=== PATIENT | male | born 1970 | race Caucasian/White ===

== ENCOUNTER → 2020-04-14 07:53 | Outpatient (BNVA) | payer BC, SELFPAY | PROVIDERS: PCP Internal Medicine; Visit Provider Orthopaedic Surgery ==

== ENCOUNTER 2022-10-28 09:47 | Outpatient (AMB) | payer BC, SELFPAY ==
[2022-10-28 09:57] VITALS: BP 120/68; PULSE 102; O2SAT 96; BMI 28.7
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
== END 2022-10-28 11:14 | disposition home or self-care (01) ==
PROVIDERS: PCP Family Medicine; Visit Provider Family Medicine
DX: I10 Essential (primary) hypertension (principal); F41.9 Anxiety disorder, unspecified; F17.210 Nicotine dependence, cigarettes, uncomplicated; Z86.010 Personal history of colon polyps; B07.9 Viral wart, unspecified; G47.9 Sleep disorder, unspecified
CPT/HCPCS: 99203

== ENCOUNTER 2023-01-04 14:33 | Outpatient (AMB) | payer BC, SELFPAY ==
[2023-01-04 14:39] VITALS: BP 126/74; PULSE 112; O2SAT 96; BMI 29.5
--- NOTE | 2023-01-04 14:39 | A.OFFPC_ITS ---
Vital Signs 01/04/23 14:39 Height 5 ft 8 in Weight 194 lb BMI 29.5 BP 126/74 Blood Pressure Location Rt brachial Position Sitting Pulse 112 H Pulse Source Pulse Oximeter Pulse Oximetry (%) 96 Oxygen Delivery Method Room Air Intake Visit Reasons: difficulty sleeping Intake Note: Patient is here with lack of sleep. fatigued since last visit. Allergies No Known Allergies Allergy (Verified 01/04/23 14:43) Tobacco use date assessed: 10/28/22 HPI difficulty sleeping HPI Details 52 y/o male presents today to f/u anxiet y and difficulty sleeping. Trialing buspirone. He stated he had used trazodone in the past. He reports ongoing difficulty sleeping. He does report he has woken up on more than one occassion gasping for air. 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 Cognitive needs: No Hearing needs: No Vision needs: Yes (wears glasses) Review of Systems Const Denies chills, Denies fatigue, Denies fever(s), Denies headache(s) and Denies weakness ENT Denies dizziness and Denies headache(s) Card Denies dyspnea Resp Denies cough, Denies dyspnea, Denies wheezing and Denies other (shortness of breath) Musc Denies numbness and Denies tingling Neuro Denies dizziness, Denies headache(s), Denies numbness, Denies tingling and Denies weakness Psych Reports anxiety and Denies depression Endo Denies fatigue Aller/Immun Denies wheezing Physical exam (Primary Care) Vital Signs: Last Vital Signs Pulse 112 H 01/04/23 14:39 BP 126/74 01/04/23 14:39 Pulse Ox 96 11/01/23 14:39 Oxygen Delivery Method Room Air 01/04/23 14:39 BMI result Body Mass Index 29.5 Tobacco/Smoking Status: Tobacco use Status Tobacco use date assessed 10/28/22 01/04/23 14:47 Patient Tobacco Use Status Current everyday Tobacco 01/04/23 14:47 e-Cigarette/Vaping Use Never Used 01/04/23 14:47 Const General: well developed; No acute distress Nutritional Appearance: well nourished Orientation/consciousness: patient oriented x3 HENMT Head: Yes normocephalic and Yes atraumatic Eyes General: appearance normal, both eyes and all related structures Pupils: Equal, round and reactive pupils present EOM: EOMs intact bilaterally Resp Effort & Inspection: normal respiratory effort Auscultation: clear to auscultation bilaterally Cardio Rate: regular rate Rhythm: regular rhythm Heart sounds: S1 normal heart sound present, S2 normal heart sound present, no gallops, no murmurs and no rubs Neuro General: patient oriented x3 and gait normal Cranial nerves: Yes Equal, round and reactive pupils present Psych Affect: normal affect Assessment and Plan Assessment & Plan (1) Anxiety: Code(s): F41.9 - Anxiety disorder, unspecified Plan: Ongoing?anxiety We?discussed?1st?and?2nd?line?medications. Will?trial?citalopram. (2) Difficulty sleeping: Code(s): G47.9 - Sleep disorder, unspecified Plan: Ongoing?difficulty?sleeping?which?may?be?multifactorial?including?anxi ety?and?also?probable?sleep?apnea. We?discussed?that?we?can?not?use?any?sedating?medications?currently?as?he?may?toro ve?sleep?apnea.??Will?rule?this?out Sleep?study?or (3) Sleep apnea: Code(s): G47.30 - Sleep apnea, unspecified Plan: As?above,?sleep?study?is?ordered. (4) Boil: Code(s): L02.92 - Furuncle, unspecified Plan: Will?give?him?a?script?for?Bactrim Patient?will?return?on?Monday?for?lancing Orders: Referrals Sleep Medicine Referral G47.30 - Sleep apnea, unspecified Medications: New citalopram (Celexa) 20 mg PO DAILY 30 days 30 tabs 1RF sulfamethoxazole-trimethoprim 800-160 mg (Bactrim DS) 1 tab PO Q12H 10 days 20 tabs 0RF Coding Level of Care Code Est Pt Level 4 (52292) Diagnoses Anxiety F41.9 Difficulty sleeping G47.9 Sleep apnea G47.30 Boil L02.92
== END 2023-01-04 16:02 | disposition home or self-care (01) ==
PROVIDERS: PCP Family Medicine; Visit Provider Family Medicine
DX: F41.9 Anxiety disorder, unspecified (principal); G47.9 Sleep disorder, unspecified; G47.30 Sleep apnea, unspecified; L02.92 Furuncle, unspecified
CPT/HCPCS: 99214

== ENCOUNTER 2023-01-06 15:34 | Outpatient (AMB) | payer BC, SELFPAY ==
--- NOTE | 2023-01-06 15:40 | MHC.PC.OV ---
Vital Signs 01/06/23 15:45 Height 5 ft 8 in Weight 186 lb BMI 28.3 BP 108/82 Blood Pressure Location Rt brachial Position Sitting Respiration 13 Pulse 113 H Pulse Source Pulse Oximeter Pulse Oximetry (%) 99 Oxygen Delivery Method Room Air Intake Visit Reasons: Shoaib boil Intake Note: Patient reports he is here for a procedure today. 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 Had started him on Bactrim and advised warm soaks. Likely need to be lanced. Fluctuance has resolved. Firmness to the wound. Central induration HPI Comments History of Present Illness Details Documentation assistance for Emeka Li MD, was provided by Travis Everett,?Obiee [employer] Solution Architect on 01/06/2023 3:52 PM EST. I, Dr. Li, have read, observed, and verified documentation.? 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 Cognitive needs: No Hearing needs: No Vision needs: Yes (wears glasses) Review of Systems Const Denies chills, Denies fatigue, Denies fever(s), Denies headache(s) and Denies weakness ENT Denies dizziness and Denies headache(s) Card Denies dyspnea Resp Denies cough, Denies dyspnea, Denies wheezing and Denies other (shortness of breath) Musc Denies numbness and Denies tingling Neuro Denies dizziness, Denies headache(s), Denies numbness, Denies tingling and Denies weakness Psych Denies anxiety and Denies depression Endo Denies fatigue Aller/Immun Denies wheezing Physical exam (Primary Care) Vital Signs: Last Vital Signs Pulse 113 H 01/06/23 15:45 Resp 13 01/06/23 15:45 BP 108/82 01/06/23 15:45 Pulse Ox 99 01/06/23 15:45 Oxygen Delivery Method Room Air 01/06/23 15:45 BMI result Body Mass Index 28.3 Tobacco/Smoking Status: Tobacco use Status Tobacco use date assessed 10/28/22 01/06/23 15:41 Patient Tobacco Use Status Current everyday Tobacco 01/06/23 15:41 e-Cigarette/Vaping Use Never Used 01/06/23 15:41 Assessment and Plan Assessment & Plan (1) Boil: Code(s): L02.92 - Furuncle, unspecified (2) Abscess: Code(s): L02.91 - Cutaneous abscess, unspecified Plan: Significantly?improved?since?last?visit.??He?has?been?taking?Bactrim?DS Minimal?or?no?fluctuance?and?erythema?has?changed?from?a?bright?red?to?a?dark/dusky?red?and?feels?more?like?granuloma Still?had?central lesion?and?I?did?attempt?to?Shoaib?this. Patient?was?prepped?and?draped?in?the?usual?sterile?fashion Had?used?povidone?iodine?to?sterilize?the?surrounding?area Used?a?11.?Scalpel?and?single?stab?incision Expressed?only?serosanguineous?fluid A?wound?culture?was?obtained The?wound?was?covered?with?bacitracin?and?a?self?adhering?bandage Advised?him?that?he?can?take?off?the?bandage?tomorrow?and?should?continue?warm?soaks?and?continue?Bactrim?DS?twice?a?day?for?the?remainder?of?10?days Overall,?wound?seems?significantly?improved?and?I?think?he?is?responding?well?to?the?antibiotic. Will?follow-up?on?wound?culture?which?is?likely?to?be?negative He?will?call?or?return?to?office?if?healing?[place]?or?wound?worsened Coding Level of Care Code Est Pt Level 3 (45610) Diagnoses Boil L02.92 Abscess L02.91
[2023-01-06 15:45] VITALS: BP 108/82; PULSE 113; RESP 13; O2SAT 99; BMI 28.3
== END 2023-01-06 16:08 | disposition home or self-care (01) ==
PROVIDERS: PCP Family Medicine; Visit Provider Family Medicine
DX: L02.92 Furuncle, unspecified (principal); L02.91 Cutaneous abscess, unspecified
CPT/HCPCS: 99213

== ENCOUNTER 2023-01-06 18:29 | Outpatient (REF) | payer BC, SELFPAY | END 2023-01-06 18:30 | disposition home or self-care (01) | LOC: HO.LNP 18:29 | PROVIDERS: Visit Provider Family Medicine | DX: L02.91 Cutaneous abscess, unspecified (principal); L02.92 Furuncle, unspecified | CPT/HCPCS: 87070; 87205 ==

== ENCOUNTER 2023-02-03 09:40 | Outpatient (REF) | payer BC, SELFPAY ==
[2023-02-03 11:19] LABS: Appearance Urine Clear; Color Urine Yellow; Glucose Urine UA Negative (Negative); Leukocyte Esterase Urine Negative (Negative); Nitrite Urine Negative (Negative); Specific Gravity - Urine 1.015 (1.005-1.025); UMIC TRIGGER UA YES; Urine Blood Trace (Negative); Urine Ketones Negative (Negative); Urine Protein 30 (1+) mg/dL (Neg-Trace)
[2023-02-03 11:50] LABS: Bacteria Urine None Seen (None Seen); Hyaline Casts Urine 0-2 /LPF (0-2); RBC Urine 0-2 /HPF (0-2); Squamous Epithelial Cell Urine 0-2 /HPF (0-2); WBC Urine 0-5 /HPF (0-5)
[2023-02-03 11:57] LABS: Alanine Aminotransferase 23 U/L (0-40); Alkaline Phosphatase 77 U/L (39-117); Anion Gap 15 (12-20); Aspartate Amino Transferase 20 U/L (5-37); Bilirubin Total 0.3 mg/dL (0.0-1.0); Blood Urea Nitrogen 27 mg/dL (9-16); Calcium 9.3 mg/dL (8.4-10.2); Carbon Dioxide 28 mmol/L (22-29); Chloride 93 mmol/L (96-108); Cholesterol 176 mg/dL (<200); Estimated Glomerular Filt Rate 53; Glucose Fasting 85 mg/dL (60-99); HDL Cholesterol 21 mg/dL (>40); LDL Cholesterol Calculated 102 mg/dL (<100); Potassium 3.4 mmol/L (3.3-5.1); Sodium 133 mmol/L (135-145); Total Protein 7.1 g/dL (6.5-8.0); Triglycerides 268 mg/dL (<150)
[2023-02-03 12:20] LABS: TSH reflex Free T4 0.68 uIU/mL (0.32-4.0)
[2023-02-03 12:21] LABS: Prostate Specific Antigen Scr 1.02 ng/mL (<0.05-4.0)
[2023-02-03 12:28] LABS: Creatinine Urine 117.19 mg/dL; Microalbum/Creatinine Ratio Ur 26.4 ug/mg cr (<30)
== END 2023-02-03 09:41 | disposition home or self-care (01) ==
LOC: HO.WFDLDS 09:40
PROVIDERS: Visit Provider Family Medicine
DX: Z00.00 Encounter for general adult medical examination without abnormal findings (principal); Z12.5 Encounter for screening for malignant neoplasm of prostate; I10 Essential (primary) hypertension
CPT/HCPCS: 36415; 80053; 80061; 81001; 82043; 82570; 84153; 84443

== ENCOUNTER 2023-02-03 10:55 | Outpatient (AMB) | payer BC, SELFPAY ==
[2023-02-03 11:01] VITALS: BP 122/78; PULSE 91; O2SAT 96; BMI 29.4
--- NOTE | 2023-02-03 11:01 | MHC.PC.OV ---
Vital Signs 02/03/23 11:01 Height 5 ft 8 in Weight 193 lb 2 oz BMI 29.4 BP 122/78 Blood Pressure Location Lt brachial Position Sitting Pulse 91 Pulse Source Pulse Oximeter Pulse Oximetry (%) 96 Oxygen Delivery Method Room Air Intake Visit Reasons: CPE with f/u labs and health maintenance Intake Note: Patient is here today for a physical, did not get his labs done until this morning. Allergies No Known Allergies Allergy (Verified 02/03/23 11:05) Medication List - Last Reconciled 02/03/23 by Emeka Li MD buspirone 5 mg PO DAILY 30 days chlorthalidone 50 mg PO DAILY cholecalciferol (vitamin D3) 50 mcg PO DAILY citalopram (Celexa) 20 mg PO DAILY 30 days diclofenac sodium 75 mg PO BID ibuprofen 800 mg PO TID 30 days lisinopril 20 mg PO DAILY montelukast 10 mg PO DAILY pyridoxine (vitamin B6) 50 mg PO DAILY Tobacco use date assessed: 02/03/23 HPI CPE with f/u labs and health maintenance HPI Details 52 y/o male presents for a CPE with f/u labs and health maintenance. No recent labs to review. Labs still pending. Blood pressure today 122/78. He is on chlorthalidone 50mg, lisinopril 20mg. Pt reports a tremor on his hands. He denies any headache, dizziness, imbalance associated with this. He does note fatigue. He has not noticed if tremor has developed starting any new medications. Pt reports a cough in the morning when he wakes up. He continues smoking a pack per day. 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 Cognitive needs: No Hearing needs: No Vision needs: Yes (wears glasses) Review of Systems Const Denies chills, Reports difficulty sleeping, Reports fatigue, Denies fever(s), Denies headache(s) and Denies weakness Eyes Denies change in vision ENT Denies dizziness, Denies headache(s), Denies hearing loss, Denies nasal congestion, Denies sinus pain, Denies sinus pressure and Denies sore throat Card Denies chest pain, Denies lightheadedness, Denies dyspnea and Denies other (palpitations) Resp Denies cough, Denies dyspnea and Denies wheezing GI Denies abdominal pain, Denies melena, Denies hematochezia, Denies change in bowel habits, Denies dyspepsia and Denies nausea Denies hematuria and Denies dysuria Musc Denies abnormal gait, Denies myalgias, Denies arthralgias, Denies numbness and Denies tingling Skin/Breast Denies rash, Denies unusual bruising and Denies wounds Neuro Denies abnormal gait, Denies dizziness, Denies headache(s), Denies memory loss, Denies numbness, Denies Sensory deficit (Neuro), Denies tingling and Denies weakness Psych Denies anxiety, Denies depression and Denies memory loss Endo Denies cold intolerance, Reports fatigue, Denies heat intolerance, Denies polydipsia and Denies polyuria Shashi/Lymph Denies easy bleeding and Denies easy bruising Aller/Immun Denies wheezing Physical exam (Primary Care) Vital Signs: Last Vital Signs Pulse 91 02/03/23 11:01 BP 122/78 02/03/23 11:01 Pulse Ox 96 02/03/23 11:01 Oxygen Delivery Method Room Air 02/03/23 11:01 BMI result Body Mass Index 29.4 Tobacco/Smoking Status: Tobacco use Status Tobacco use date assessed 02/03/23 02/03/23 11:08 Patient Tobacco Use Status Current everyday Tobacco 02/03/23 11:04 e-Cigarette/Vaping Use Never Used 02/03/23 11:04 Const General: no acute distress, well developed, alert and awake Nutritional Appearance: well nourished Orientation/consciousness: patient oriented x3 HENMT Head: Yes normocephalic and Yes atraumatic Ears: hearing grossly normal bilaterally and TM's normal bilaterally General nose exam: Normal external nose present and Normal nares present Mouth: Normal oral and palatal mucosa present and moist mucous membranes Teeth and gingiva: dentition normal Throat: Yes posterior oropharynx normal Eyes General: appearance normal, both eyes and all related structures Pupils: Equal, round and reactive pupils present and Pupil accommodation reflex normal EOM: EOMs intact bilaterally Neck Neck: Yes normal visual inspection, Yes no lymphadenopathy and Yes trachea midline Thyroid: Thyroid normal Carotids: no bruits Lymphatic: no lymphadenopathy noted Chest Chest palpation & inspection: normal inspection of the chest Resp Effort & Inspection: normal respiratory effort Auscultation: clear to auscultation bilaterally Cardio Rate: regular rate Rhythm: regular rhythm Heart sounds: S1 normal heart sound present, S2 normal heart sound present, no gallops, no murmurs and no rubs Bruits: no abdominal aortic bruits and no carotid bruits GI Palpation (GI): No Abdominal aortic bruit present, Soft to palpation, nontender, No hepatosplenomegaly present and No Rebound tenderness present Auscultation: normal bowel sounds General: Yes no CVA tenderness Back/Spine/Pelvis Back: no CVA tenderness Cervical Spine: cervical ROM normal and No Cervical spine tenderness Thoracic/Lumbar Spine: thoraco-lumbar ROM normal, No pain with thoraco-lumbar ROM, No thoracic spinal tenderness and No lumbar spinal tenderness Skin Lesions: no lesions Rashes: no rashes Trauma: no lacerations or abrasions Wounds: no wounds Nails: normal Neuro General: patient oriented x3 Cranial nerves: Yes Equal, round and reactive pupils present Cognition (Neuro): normal cognition Gait exam (Neuro): Normal gait present Motor exam (neuro): 5/5 motor strength present throughout Sensory Exam: No Sensory deficit (Neuro) Deep tendon reflexes (DTR's): Right patellar reflex intensity grade: 2+ and Left patellar reflex intensity grade: 2+ Extrem General: Yes normal to inspection and No edema Psych Appearance: grossly normal Affect: normal affect Attitude: cooperative Thought process: Normal thought process present Assessment and Plan Assessment & Plan (1) Adult general medical exam: Code(s): Z00.00 - Encounter for general adult medical examination without abnormal findings Plan: 52-year-old?male?presents?for?complete?physical?exam Encouraged?healthy?diet?with?active?lifestyle?and?plenty?of?exercise (2) Hypertension: Code(s): I10 - Essential (primary) hypertension Plan: Blood?pressure?is?controlled.??Goal?is?less?than?140/90 (3) Tremor: Code(s): R25.1 - Tremor, unspecified Plan: Very?fine?tremor?bilaterally?though?patient?notes?this?becomes?more?course?at?times He?says?this?precedes?starting?citalopram?but?I?will?have?him?discontinue?this?for?now. Encouraged?cessation?of?caffeine or?any?other?stimulants. Encouraged?decreasing?in?cessation?of?nicotine?as?able Encouraged?improved?sleep?as?able?and?he?will?be?seeing?sleep?Medicine?soon. Asked?him?to?keep?a?symptom?diary If?not?improving?with?the?above?or?if?worsening, will?refer?to?Neurology (4) Screening for colon cancer: Code(s): Z12.11 - Encounter for screening for malignant neoplasm of colon Plan: Patient?had?a?colonoscopy?with?Dr. Garcia most?recently?and?was?told?to?follow-up?in?10?years. He?is?up-to-date.??I?am?requesting?the?report?so?I?know?when?he?is?due?back (5) Cough: Code(s): R05.9 - Cough, unspecified Plan: Has?a?morning?cough Advised?smoking?cessation (6) Screening for prostate cancer: Code(s): Z12.5 - Encounter for screening for malignant neoplasm of prostate Plan: Patient?had?labs?drawn?today?including?PSA?which?is?not?available?yet. We?can?follow-up?at?his?telemedicine?appointment?in?a?few?weeks (7) Smoker: Code(s): F17.200 - Nicotine dependence, unspecified, uncomplicated Plan: As?above,?advised?smoking?cessation (8) Anxiety: Code(s): F41.9 - Anxiety disorder, unspecified Plan: Will?follow He?has?been?on?Celexa?but?we?are?discontinuing?this?for the?time?being (9) Sleep apnea: Code(s): G47.30 - Sleep apnea, unspecified Plan: Has?appointment?coming?up?with?sleep?medicine. Coding Level of Care Code Est Pt Level 3 (14038) Est Pt Prev Care 40-64y(64931) Diagnoses Adult general medical exam Z00.00 Hypertension I10 Tremor R25.1 Screening for colon cancer Z12.11 Cough R05.9 Screening for prostate cancer Z12.5 Smoker F17.200 Anxiety F41.9 Sleep apnea G47.30
== END 2023-02-03 12:26 | disposition home or self-care (01) ==
PROVIDERS: PCP Family Medicine; Visit Provider Family Medicine
DX: Z00.00 Encounter for general adult medical examination without abnormal findings (principal); I10 Essential (primary) hypertension; R25.1 Tremor, unspecified; R05.9 Cough, unspecified; F17.210 Nicotine dependence, cigarettes, uncomplicated; F41.9 Anxiety disorder, unspecified; G47.30 Sleep apnea, unspecified
CPT/HCPCS: 99212; 99396

== ENCOUNTER 2023-02-14 14:52 | Outpatient (AMB) | payer BC, SELFPAY ==
--- NOTE | 2023-02-14 14:47 | MHC.PC.OV ---
Intake Visit Reasons: f/u CPE-labs Intake Note: Patient is following up on labs today. Allergies No Known Allergies Allergy (Verified 02/14/23 14:50) Tobacco use date assessed: 02/14/23 HPI f/u CPE-labs HPI Details 52 y/o male presents to f/u CPE-labs via telemedicine. Labs were drawn 02/03/23. Reviewed labs with pt. Mildly low sodium at 133 mmol/L. Triglycerides 268. TC 176. LDL 102. HDL low at 21. He reports he plans to have a more active lifestyle. Pt had complaints of a tremor last office visit. He reports he had reduced his coffee intake from 6 cups per day to 2-3. He reports ongoing tremors. 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 Cognitive needs: No Hearing needs: No Vision needs: Yes (wears glasses) Review of Systems Const Denies chills, Denies fatigue, Denies fever(s), Denies headache(s) and Denies weakness ENT Denies dizziness and Denies headache(s) Card Denies dyspnea Resp Denies cough, Denies dyspnea, Denies wheezing and Denies other (shortness of breath) Musc Denies numbness and Denies tingling Neuro Denies dizziness, Denies headache(s), Denies numbness, Denies tingling and Denies weakness Psych Denies anxiety and Denies depression Endo Denies fatigue Aller/Immun Denies wheezing Physical exam (Primary Care) Tobacco/Smoking Status: Tobacco use Status Tobacco use date assessed 02/14/23 02/14/23 14:50 Patient Tobacco Use Status Current everyday Tobacco 02/14/23 14:50 e-Cigarette/Vaping Use Never Used 02/14/23 14:50 Telehealth Telehealth Location of provider rendering services: practice address Location of patient: address on file Patient Identification confirmed using: Name, : Yes Telehealth method: voice only Patient verbally consented to treatment: Yes Patient verbally consented to billing insurance company: Yes Patient informed of any privacy concerns related to visit: Yes Minutes spent on Phone/Video with Pt.: 8 Assessment and Plan Assessment & Plan (1) Tremor: Code(s): R25.1 - Tremor, unspecified Plan: Still?has?ongoing?tremor?after?decreasing?smoking?and?caffeine. He?has?not?discontinued?citalopram and?this?medication?could?cause?dyskinesias?though?this?is?unlikely?and?his?symptoms?preceded?taking?the?medication. Also?has?an?upcoming?sleep?study?as?poor?sleep?can?also?cause?shakiness. Ultimately,?he?has?ongoing/worsening?tremor?and?I?am?referring?him?to?Neurology (2) Hyponatremia: Code(s): E87.1 - Hypo-osmolality and hyponatremia Plan: Very?mild?hyponatremia Hydrate?well?and?get?regular?meals We?can?follow?the (3) Hypertriglyceridemia: Code(s): E78.1 - Pure hyperglyceridemia Plan: Encouraged?a?diet?low?in?saturated?fats?and?cholesterol (4) Low HDL (under 40): Code(s): E78.6 - Lipoprotein deficiency Plan: Encouraged?increased?exercise?and?[place]?3?fatty?acids?in?diet Will?follow He?can?repeat?his?lipids?in?a?few?months Orders: Referrals Neurology Referral R25.1 - Tremor, unspecified Coding Level of Care Code Tele Est Pt Level 2 (42625) Diagnoses Tremor R25.1 Hyponatremia E87.1 Hypertriglyceridemia E78.1 Low HDL (under 40) E78.6
== END 2023-02-14 15:00 | disposition home or self-care (01) ==
LOC: HO.HMGFM 14:52
PROVIDERS: PCP Family Medicine; Visit Provider Family Medicine
DX: R25.1 Tremor, unspecified (principal); E87.1 Hypo-osmolality and hyponatremia; E78.1 Pure hyperglyceridemia; E78.6 Lipoprotein deficiency
CPT/HCPCS: 99441

== ENCOUNTER 2023-03-02 08:01 | Outpatient (AMB) | payer BC, SELFPAY ==
--- NOTE | 2023-03-02 08:03 | A.OFFVIS_ITS ---
Intake Vital Signs 03/02/23 08:04 Height 5 ft 8 in Weight 188 lb 2 oz BMI 28.6 BP 106/68 Blood Pressure Location Rt brachial Position Sitting Respiration 16 Pulse 112 H Pulse Source Pulse Oximeter Pulse Oximetry (%) 98 Oxygen Delivery Method Room Air Intake Visit Reasons: [id number] Intake Note: Pt presents to the office for a new patient evaluation for sleep apnea. 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 Pt reports difficulty falling asleep and staying sleep. He tosses and turns, and can't have good, rested sleep. He tried many sleep medications. The last medication he tried was Valium, it worked at the beginning. However he had witnessed apnea spells and gasping arousals, and his doctor wants to r/o sleep apnea. He reports snoring and gasping arousals. Sleep questionnaire: Have you ever been diagnosed with a sleep disorder? Insomina. Have you ever had a sleep study in the past? No. Have you ever been treated for a sleep disorder? No. Do you take medications for a sleep disorder? Not now. Do you snore? Yes. Do you wake up gasping at night? Yes. Do you have episodes of apneas? Yes/ If yes, are they witnessed? Yes, by his . Do you have episodes of nocturnal chest pain or dyspnea? No. Do you have difficulty initiating sleep? Yes. Do you have difficulty maintaining sleep? Yes. Do you wake up tired? Yes, everyday. Do you have headaches upon awakening? No. Do you wake up with dry mouth or throat? Yes. Do you have GERD? Yes. Do you have nocturia? Yes. Do you have nocturnal leg cramps? No. Do you have symptoms of restless legs? Yes. Do you act out your dreams? No. Sleep hygiene questionnaire: What is your usual sleep routine? Usual bedtime is at 9:30 ; Usual wake up time is at 5:30 am. Do you take naps? Yes, sometimes. Is your sleep environment cool, dark, and quiet? Yes. Do you exercise? Yes. Do you take caffeine or other stimulants? A cup of coffee in the morning and smoking. Do you use electronics in bed? Yes, watch TV. What is your work schedule? 7 am to 3:30 pm. Hypersomnolence questionnaire: Do you have daytime tiredness or fatigue? Yes. Do you easily fall asleep when inactive? Yes. Have you ever had episodes of sudden weakness? No. Have you ever had episodes of sudden weakness associated with strong emotions? No. 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 Cognitive needs: No Hearing needs: No Vision needs: Yes (wears glasses) Review of Systems Const All systems reviewed & are unremarkable except as noted in HPI and below Physical Exam Vital Signs: Last Vital Signs Pulse 112 H 03/02/23 08:04 Resp 16 03/02/23 08:04 BP 106/68 03/02/23 08:04 Pulse Ox 98 03/02/23 08:04 Oxygen Delivery Method Room Air 03/02/23 08:04 BMI result Body Mass Index 28.6 Const General: cooperative Nutritional Appearance: overweight Orientation/consciousness: patient oriented x3 Neck Neck: Yes full ROM and Yes supple Resp Effort & Inspection: normal respiratory effort and able to speak in complete sentences Neuro General: patient oriented x3, gait normal and moves all extremities Cranial nerves: Yes CN's II-XII intact bilaterally Gait exam (Neuro): Normal gait present Psych Appearance: grossly normal Mental Status: mental status grossly normal Speech and movement: Normal speech and movement present Affect: normal affect Attitude: cooperative Assessment & Plan Assessment & Plan (1) Daytime sleepiness: Code(s): R40.0 - Somnolence (2) Snoring: Code(s): R06.83 - Snoring (3) Difficulty sleeping: Code(s): G47.9 - Sleep disorder, unspecified Plan Pt is advised to undergo home sleep study to assess for sleep apnea. Will f/u with pt after study to discuss results and appropriate treatment options. Advised patient to limit evening smoking, and electronic use before bedtime. Advised patient to try magnesium glycinate 200-400 mg qHS. Pt to call with any worsening concerns or questions. Orders: Orders RT home sleep study Today G47.30 - Sleep apnea, unspecified, R06.83 - Snoring, R40.0 - Somnolence Coding Level of Care Code New Pt Level 3 (98354) Diagnoses Daytime sleepiness R40.0 Snoring R06.83 Difficulty sleeping G47.9
[2023-03-02 08:04] VITALS: BP 106/68; PULSE 112; RESP 16; O2SAT 98; BMI 28.6
== END 2023-03-02 08:33 | disposition home or self-care (01) ==
PROVIDERS: PCP Family Medicine; Visit Provider Nurse Practitioner Family
DX: R40.0 Somnolence (principal); R06.83 Snoring; G47.9 Sleep disorder, unspecified
CPT/HCPCS: 99203

== ENCOUNTER → 2023-03-02 08:01 | Outpatient (BNVA) | payer BC, SELFPAY | PROVIDERS: PCP Family Medicine; Visit Provider Nurse Practitioner Family ==

== ENCOUNTER 2023-07-14 09:01 | Outpatient (REF) | payer BC, SELFPAY ==
[2023-07-14 11:41] LABS: Appearance Urine Clear; Color Urine Yellow; Glucose Urine UA Negative (Negative); Leukocyte Esterase Urine Negative (Negative); Nitrite Urine Negative (Negative); PH 5.5 (5.0-9.0); Specific Gravity - Urine <= 1.005 (1.005-1.025); Urine Blood Negative (Negative); Urine Ketones Negative (Negative); Urine Protein Negative (Neg-Trace)
[2023-07-14 13:02] LABS: Alanine Aminotransferase 33 U/L (0-40); Albumin Level 4.3 g/dL (3.5-5.0); Alkaline Phosphatase 84 U/L (39-117); Anion Gap 17 (12-20); Aspartate Amino Transferase 19 U/L (5-37); Bilirubin Total 0.3 mg/dL (0.0-1.0); Blood Urea Nitrogen 19 mg/dL (9-16); Calcium 9.7 mg/dL (8.4-10.2); Carbon Dioxide 25 mmol/L (22-29); Chloride 97 mmol/L (96-108); Cholesterol 199 mg/dL (<200); Estimated Glomerular Filt Rate > 60; Glucose Fasting 90 mg/dL (60-99); HDL Cholesterol 23 mg/dL (>40); Potassium 3.6 mmol/L (3.3-5.1); Sodium 135 mmol/L (135-145); Total Protein 7.6 g/dL (6.5-8.0); Triglycerides 405 mg/dL (<150)
== END 2023-07-14 09:02 | disposition home or self-care (01) ==
LOC: HO.WFDLDS 09:01
PROVIDERS: Visit Provider Family Medicine
DX: Z00.00 Encounter for general adult medical examination without abnormal findings (principal); E78.6 Lipoprotein deficiency; E87.1 Hypo-osmolality and hyponatremia
CPT/HCPCS: 36415; 80053; 80061; 81003

== ENCOUNTER 2023-08-04 13:56 | Outpatient (AMB) | payer BC, SELFPAY ==
[2023-08-04 13:56] VITALS: BP 140/80; PULSE 123; O2SAT 96; BMI 28.0
--- NOTE | 2023-08-04 13:56 | A.OFFPC_ITS ---
Vital Signs 08/04/23 13:56 Height 5 ft 8 in Weight 184 lb BMI 28.0 BP 140/80 H Blood Pressure Location Lt brachial Position Sitting Pulse 123 H Pulse Source Pulse Oximeter Pulse Oximetry (%) 96 Oxygen Delivery Method Room Air Intake Visit Reasons: f/u hypertriglyceridemia and tremors Intake Note: Patient is here to follow up on hypertriglyceridemia and tremors. He is yohan rned of lumps in chest area, losing sleep, and would like to discuss testosterone. Allergies No Known Allergies Allergy (Verified 08/04/23 14:00) Medication List - Last Reconciled 08/04/23 by Emeka Li MD buspirone 5 mg PO DAILY 30 days chlorthalidone 50 mg PO DAILY cholecalciferol (vitamin D3) 50 mcg PO DAILY citalopram (Celexa) 20 mg PO DAILY 90 days diclofenac sodium 75 mg PO BID ibuprofen 800 mg PO TID 30 days lisinopril 20 mg PO DAILY montelukast 10 mg PO DAILY pyridoxine (vitamin B6) 50 mg PO DAILY Tobacco use date assessed: 08/04/23 Dental Screening Dental Screen Date: 08/04/23 HPI f/u hypertriglyceridemia and tremors HPI Details 53 y/o male presents to f/u hypertriglyc eridemia and tremors. Labs were drawn 07/14/23. Reviewed labs with pt. Triglycerides worsened from 268 to 405. TC 199. LDL TNP. HDL low at 23. Pt has complaints of lumps in his lower back. He notes he has been watching what he eats and has been losing weight. 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 Cognitive needs: No Hearing needs: No Vision needs: Yes (wears glasses) Review of Systems Const Denies chills, Denies fatigue, Denies fever(s), Denies headache(s) and Denies weakness ENT Denies dizziness and Denies headache(s) Card Denies dyspnea Resp Denies cough, Denies dyspnea, Denies wheezing and Denies other (shortness of breath) Musc Denies numbness and Denies tingling Neuro Denies dizziness, Denies headache(s), Denies numbness, Denies tingling and Denies weakness Psych Denies anxiety and Denies depression Endo Denies fatigue Aller/Immun Denies wheezing Physical exam (Primary Care) Vital Signs: Last Vital Signs Pulse 123 H 08/04/23 13:56 BP 140/80 H 08/04/23 13:56 Pulse Ox 96 08/04/23 13:56 Oxygen Delivery Method Room Air 08/04/23 13:56 BMI result Body Mass Index 28.0 Tobacco/Smoking Status: Tobacco use Status Tobacco use date assessed 08/04/23 08/04/23 14:07 Patient Tobacco Use Status Current everyday Tobacco 08/04/23 14:07 e-Cigarette/Vaping Use Never Used 08/04/23 14:07 Const General: well developed; No acute distress Nutritional Appearance: well nourished Orientation/consciousness: patient oriented x3 HENMT Head: Yes normocephalic and Yes atraumatic Eyes General: appearance normal, both eyes and all related structures Pupils: Equal, round and reactive pupils present EOM: EOMs intact bilaterally Resp Effort & Inspection: normal respiratory effort Cardio Rate: tachycardic Neuro General: patient oriented x3 and gait normal Cranial nerves: Yes Equal, round and reactive pupils present Psych Affect: normal affect Assessment and Plan Assessment & Plan (1) Hypertriglyceridemia: Code(s): E78.1 - Pure hyperglyceridemia Plan: Triglycerides?are?significantly?elevated?and?over?400 Start?fenofibrate Work?on?diet?lower?in?saturated?fats?and?cholesterol (2) Tremor: Code(s): R25.1 - Tremor, unspecified Plan: Followed?by?Neurology?and?he?has?had?improvement?with?decrease?or?stopping?caffe ine Follow-up?with?Neurology?as?recommended (3) Sebaceous cyst: Code(s): L72.3 - Sebaceous cyst Plan: Sebaceous?cyst?at?right?side?of?chest He?can?use?warm?compresses He?will?let?me?know?if?this?increases?in?size?or?changes?in?any?way (4) Tachycardia: Code(s): R00.0 - Tachycardia, unspecified Plan: Frequent?mild?tachycardia He?is?on?chlorthalidone?and?says?he?does?not?always?drink?enough?water. Encouraged?increased?hydration (5) Low HDL (under 40): Code(s): E78.6 - Lipoprotein deficiency Plan: Encouraged?exercise (6) Fatigue: Code(s): R53.83 - Other fatigue Plan: Had?appointment?with?sleep?medicine?and?they?recommended?a?sleep?study Patient?has?not?gotten?this?done. Given?symptoms?which?also?include?erectile?dysfunction,?I?suggest?he?go?ahead?an d?do?that?to?rule?out?sleep?apnea (7) Daytime sleepiness: Code(s): R40.0 - Somnolence Plan: As?above,?encouraged?follow?through?with?sleep?study (8) Erectile dysfunction: Code(s): N52.9 - Male erectile dysfunction, unspecified Plan: Patient?requests?testosterone?check Labs?ordered (9) Hypertension: Code(s): I10 - Essential (primary) hypertension Plan: Controlled.??Goal?is?less?than?140/90 Continue?current?medication Encouraged?good?hydration Orders: Orders Testosterone, Free/Total Today R53.83 - Other fatigue Lipid Panel Today E78.1 - Pure hyperglyceridemia, Z00.00 - Encounter for general adult medical examination without abnormal findings Comprehensive [place]. Panel Fast Today E78.1 - Pure hyperglyceridemia, Z00.00 - Encounter for general adult medical examination without abnormal findings Medications: New fenofibrate 54 mg PO DAILY 90 days 90 tabs 2RF E78.1 - Pure hyperglyceridemia Coding Level of Care Code Est Pt Level 4 (81908) Diagnoses Hypertriglyceridemia E78.1 Tremor R25.1 Sebaceous cyst L72.3 Tachycardia R00.0 Low HDL (under 40) E78.6 Fatigue R53.83 Daytime sleepiness R40.0 Erectile dysfunction N52.9 Hypertension I10
== END 2023-08-04 14:39 | disposition home or self-care (01) ==
PROVIDERS: PCP Family Medicine; Visit Provider Family Medicine
DX: E78.1 Pure hyperglyceridemia (principal); R25.1 Tremor, unspecified; L72.3 Sebaceous cyst; R00.0 Tachycardia, unspecified; E78.6 Lipoprotein deficiency; R53.83 Other fatigue; R40.0 Somnolence; N52.9 Male erectile dysfunction, unspecified; I10 Essential (primary) hypertension
CPT/HCPCS: 99214

== ENCOUNTER 2023-09-15 07:40 | Outpatient (REF) | payer BC, SELFPAY ==
[2023-09-15 12:29] LABS: Alanine Aminotransferase 19 U/L (0-40); Albumin Level 4.5 g/dL (3.5-5.0); Alkaline Phosphatase 68 U/L (39-117); Anion Gap 12 (12-20); Aspartate Amino Transferase 17 U/L (5-37); Bilirubin Total 0.3 mg/dL (0.0-1.0); Blood Urea Nitrogen 25 mg/dL (9-16); Calcium 10.3 mg/dL (8.4-10.2); Carbon Dioxide 28 mmol/L (22-29); Chloride 99 mmol/L (96-108); Cholesterol 221 mg/dL (<200); Estimated Glomerular Filt Rate > 60; Glucose Fasting 93 mg/dL (60-99); HDL Cholesterol 29 mg/dL (>40); LDL Cholesterol Calculated 142 mg/dL (<100); Potassium 3.1 mmol/L (3.3-5.1); Sodium 136 mmol/L (135-145); Total Protein 7.6 g/dL (6.5-8.0); Triglycerides 251 mg/dL (<150)
[2023-09-21 08:13] LABS: Testosterone, Total 525 ng/dL (250-1100)
== END 2023-09-15 07:41 | disposition home or self-care (01) ==
LOC: HO.WFDLDS 07:40
PROVIDERS: Visit Provider Family Medicine
DX: Z00.00 Encounter for general adult medical examination without abnormal findings (principal); R53.83 Other fatigue; E78.1 Pure hyperglyceridemia
CPT/HCPCS: 36415; 80053; 80061; 84402; 84403

== ENCOUNTER 2023-12-01 08:29 | Outpatient (AMB) | payer BC, SELFPAY ==
--- NOTE | 2023-12-01 08:33 | MHC.PC.OV ---
Vital Signs 12/01/23 08:36 Height 5 ft 8 in Weight 186 lb 6 oz BMI 28.3 BP 100/70 Blood Pressure Location Rt brachial Position Sitting Respiration 16 Pulse 99 Pulse Source Pulse Oximeter Temp 98.1 F Temp Source Oral Pulse Oximetry (%) 96 Oxygen Delivery Method Room Air Intake Visit Reasons: lab results Intake Note: lab review Allergies No Known Allergies Allergy (Verified 12/01/23 08:33) Tobacco use date assessed: 08/04/23 Dental Screening Dental Screen Date: 08/04/23 HPI lab results HPI Details 53 y/o male presents to f/u labs, chronic conditions. Labs drawn 09/15/23. Reviewed labs with pt. Triglycerides 251, which improved from 405. TC 221. LDL 142. HDL low at 29. He is on fenofibrate 54 mg daily. Testosterone levels are fine. Blood pressure today 100/70, 99p. He is on lisinopril 20mg, chlorthalidone 50mg daily. Ongoing complaints of erectile dysfunction. He f/u with urology. HPI Comments History of Present Illness Details Documentation assistance for Emeka Li MD, was provided by Travis Everett, Multi Disciplined Language Analyst on 12/01/2023 at 9:02 AM EST. I, Dr. Li, have read, observed, and verified documentation. 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 Cognitive needs: No Hearing needs: No Vision needs: Yes (wears glasses) Review of Systems Const Denies chills, Denies fatigue, Denies fever(s), Denies headache(s) and Denies weakness ENT Denies dizziness and Denies headache(s) Card Denies dyspnea Resp Denies cough, Denies dyspnea, Denies wheezing and Denies other (shortness of breath) Musc Denies numbness and Denies tingling Neuro Denies dizziness, Denies headache(s), Denies numbness, Denies tingling and Denies weakness Psych Denies anxiety and Denies depression Endo Denies fatigue Aller/Immun Denies wheezing Physical exam (Primary Care) Vital Signs: Last Vital Signs Temp 98.1 F 12/01/23 08:36 Pulse 99 12/01/23 08:36 Resp 16 12/01/23 08:36 BP 100/70 12/01/23 08:36 Pulse Ox 96 12/01/23 08:36 Oxygen Delivery Method Room Air 12/01/23 08:36 BMI result Body Mass Index 28.3 Tobacco/Smoking Status: Tobacco use Status Tobacco use date assessed 08/04/23 12/01/23 08:39 Patient Tobacco Use Status Current everyday Tobacco 12/01/23 08:39 e-Cigarette/Vaping Use Never Used 12/01/23 08:39 Const General: well developed; No acute distress Nutritional Appearance: well nourished Orientation/consciousness: patient oriented x3 [facility] Head: Yes normocephalic and Yes atraumatic Eyes General: appearance normal, both eyes and all related structures Pupils: Equal, round and reactive pupils present EOM: EOMs intact bilaterally Resp Effort & Inspection: normal respiratory effort Neuro General: patient oriented x3 and gait normal Cranial nerves: Yes Equal, round and reactive pupils present Psych Affect: normal affect Assessment and Plan Assessment & Plan (1) Hyperlipidemia: Code(s): E78.5 - Hyperlipidemia, unspecified Plan: Triglycerides?much?improved?on?fenofibrate LDL?is?too?high?and?HDL?is?too?low Encouraged?a?diet?lower?in?saturated?fats?and?cholesterol?and?encouraged?weight?loss?and?exercise He?will?work?on?these?and?we?will?recheck?in?3-4?months. 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
[2023-12-01 08:36] VITALS: BP 100/70; PULSE 99; RESP 16; TEMP 36.7; O2SAT 96; BMI 28.3
== END 2023-12-01 09:25 | disposition home or self-care (01) ==
PROVIDERS: PCP Family Medicine; Visit Provider Family Medicine
DX: E78.5 Hyperlipidemia, unspecified (principal); I10 Essential (primary) hypertension; E78.6 Lipoprotein deficiency; N52.9 Male erectile dysfunction, unspecified; R25.1 Tremor, unspecified

== ENCOUNTER → 2023-12-01 08:29 | Outpatient (BNVA) | payer BC, SELFPAY | PROVIDERS: PCP Family Medicine; Visit Provider Family Medicine | DX: E78.5 Hyperlipidemia, unspecified (principal); I10 Essential (primary) hypertension; E78.6 Lipoprotein deficiency; N52.9 Male erectile dysfunction, unspecified; R25.1 Tremor, unspecified; Z79.899 Other long term (current) drug therapy ==

== ENCOUNTER 2024-04-03 09:38 | Outpatient (REF) | payer BC, SELFPAY ==
[2024-04-03 11:36] LABS: MANUAL DIFF FLAG NO
[2024-04-03 11:44] LABS: Basophils Percent Auto 0.4 % (0-2); Eosinophils Absolute Auto 0.2 X10*3/uL (0.0-0.4); Eosinophils Percent Auto 2.1 % (0-4); Hematocrit 44.3 % (42.0-52.0); Hemoglobin 15.2 g/dl (14.0-18.0); Imm Gran Abs Auto 0.03 X10*3/uL (0.00-0.03); Imm Gran Pct Auto 0.4 % (0.0-0.4); Lymphocytes Absolute Auto 2.7 X10*3/uL (1.2-4.9); Lymphocytes Percent Auto 32.4 % (20-40); Mean Corpuscular HGB Conc 34.3 g/dl (31.0-36.0); Mean Corpuscular Hemoglobin 27.4 pg (27.0-33.0); Mean Platelet Volume 9.6 fL (9.4-12.4); Monocytes Absolute Auto 0.5 X10*3/uL (0.1-1.2); Monocytes Percent Auto 5.6 % (2-11); Neutrophils Absolute Auto 4.9 x10*3/uL (2.0-8.3); Neutrophils Percent Auto 59.1 % (45-73); Platelet Count 276 X10*3/uL (160-400); Red Blood Count 5.54 X10*6/uL (4.60-5.80); Red Cell Distribution Width 13.1 % (11.0-16.0); White Blood Count 8.3 X10*3/uL (4.8-10.8)
[2024-04-03 12:12] LABS: Alanine Aminotransferase 23 U/L (0-40); Albumin Level 4.3 g/dL (3.5-5.0); Alkaline Phosphatase 68 U/L (39-117); Anion Gap 13 (12-20); Aspartate Amino Transferase 23 U/L (5-37); Bilirubin Total 0.4 mg/dL (0.0-1.0); Blood Urea Nitrogen 20 mg/dL (9-16); Calcium 10.4 mg/dL (8.4-10.2); Carbon Dioxide 27 mmol/L (22-29); Chloride 98 mmol/L (96-108); Cholesterol 193 mg/dL (<200); Estimated Glomerular Filt Rate > 60; Glucose Fasting 96 mg/dL (60-99); HDL Cholesterol 25 mg/dL (>40); LDL Cholesterol Calculated 133 mg/dL (<100); Potassium 3.3 mmol/L (3.3-5.1); Sodium 135 mmol/L (135-145); Triglycerides 177 mg/dL (<150)
[2024-04-03 12:28] LABS: TSH reflex Free T4 0.52 uIU/mL (0.32-4.0)
[2024-04-03 12:37] LABS: Prostate Specific Antigen Scr 1.28 ng/mL (<0.05-4.0)
== END 2024-04-03 09:39 | disposition home or self-care (01) ==
LOC: HO.WFDLDS 09:38
PROVIDERS: Visit Provider Family Medicine
DX: Z00.00 Encounter for general adult medical examination without abnormal findings (principal); Z12.5 Encounter for screening for malignant neoplasm of prostate
CPT/HCPCS: 36415; 80053; 80061; 84153; 84443; 85025

== ENCOUNTER 2024-04-05 09:25 | Outpatient (AMB) | payer BC, SELFPAY ==
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
[2024-04-05 09:38] VITALS: BP 108/80; PULSE 113; O2SAT 97; BMI 27.9
== END 2024-04-05 10:27 | disposition home or self-care (01) ==
PROVIDERS: PCP Family Medicine; Visit Provider Family Medicine
DX: E78.5 Hyperlipidemia, unspecified (principal); E78.6 Lipoprotein deficiency; M54.12 Radiculopathy, cervical region

== ENCOUNTER → 2024-04-05 09:25 | Outpatient (BNVA) | payer BC, SELFPAY | PROVIDERS: PCP Family Medicine; Visit Provider Family Medicine | DX: E78.5 Hyperlipidemia, unspecified (principal); E78.6 Lipoprotein deficiency; M54.12 Radiculopathy, cervical region | CPT/HCPCS: 96127 ==

== ENCOUNTER → 2024-05-10 18:14 | Outpatient (BNV) | payer BC, SELFPAY | PROVIDERS: PCP Family Medicine; Visit Provider Radiology Diagnostic Radiology | DX: M54.12 Radiculopathy, cervical region (principal) | CPT/HCPCS: 72141 ==

== ENCOUNTER 2024-05-10 18:19 | Outpatient (REF) | payer BC, SELFPAY ==
--- NOTE | ~2024-05-10 | MR_ITS ---
EXAMINATION: MR CERVICAL SPINE WITHOUT CONTRAST CLINICAL INFORMATION: Radiculopathy, cervical region. COMPARISON: None available. TECHNIQUE: MRI of the cervical spine was obtained using routine sequences without contrast. FINDINGS: Paramagnetic field distortion secondary to metallic hardware anterior intervertebral body disc spacers at C4-5 C5-6 levels. Craniocervical junction is intact. No gross bone marrow STIR signal abnormality. Multilevel marginal osteophyte formation and disc desiccation, C3-4 C6-7 and to a lesser extent C7-T1 and T2-3. The alignment is normal. The cervical spinal cord signal is normal. C2-3: Broad-based disc osteophyte complex formation. Right facet joint hypertrophy. No central spinal canal or neuroforamina stenosis. C3-4: Right-sided disc osteophyte complex formation resulting in ventral deformity of the spinal cord involving mostly the right side. Facet joint hypertrophy bilaterally. Bilateral neuroforamina stenosis. C4-5: Right-sided disc osteophyte complex formation resulting in right ventricle spinal cord deformity. There is CSF in the dorsal aspect of the thecal sac. Facet joint hypertrophy. No gross neuroforamina stenosis. C5-6: Right-sided disc osteophyte complex formation resulting in ventral deformity of the thecal sac. No cord compression. Right neural foramen narrowing. Bilateral perineural cysts. C6-7: Broad-based disc osteophyte complex formation resulting in ventral deformity of the spinal cord and flattening. Bilateral neuroforamina narrowing. Bilateral perineural cysts. C7-T1: Broad-based disc osteophyte complex formation resulting in ventral deformity of the thecal sac. Bilateral neuroforamina narrowing. No prevertebral compartment hematoma, mass or fluid collection. Flow-void signal within the main vessels is normal. Left vertebral artery is dominant.. MR/MR cervical spine wo con IMPRESSION: Multilevel cervical spondylosis C3-4 to C6-7 resulting in central spinal canal stenosis without cord compression, cord edema and or myelopathy. Bilateral neuroforamina stenosis at C3-4 and C6-7 on a degenerative basis. Electronically signed by: Duy Tran MD 05/14/2024 07:21 AM EDT
== END 2024-05-10 18:20 | disposition home or self-care (01) ==
LOC: HO.MRI 18:19
PROVIDERS: PCP Family Medicine; Visit Provider Family Medicine
DX: M54.12 Radiculopathy, cervical region (principal)
CPT/HCPCS: 72141

== ENCOUNTER 2024-05-31 11:18 | Outpatient (AMB) | payer BC, SELFPAY ==
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
[2024-05-31 11:32] VITALS: BP 120/70; PULSE 100; RESP 14; TEMP 36.8; O2SAT 96; BMI 28.7
== END 2024-05-31 12:01 | disposition home or self-care (01) ==
LOC: HO.HMCFM 11:19
PROVIDERS: PCP Family Medicine; Visit Provider Family Medicine
DX: M54.12 Radiculopathy, cervical region (principal); E78.5 Hyperlipidemia, unspecified

== ENCOUNTER → 2024-05-31 11:18 | Outpatient (BNVA) | payer BC, SELFPAY | PROVIDERS: PCP Family Medicine; Visit Provider Family Medicine | DX: M54.12 Radiculopathy, cervical region (principal); E78.5 Hyperlipidemia, unspecified; Z79.899 Other long term (current) drug therapy; Z98.1 Arthrodesis status | CPT/HCPCS: 96127 ==

== ENCOUNTER 2024-08-13 08:00 | Outpatient (REF) | payer BC, SELFPAY ==
[2024-08-13 11:21] LABS: Appearance Urine Clear; Color Urine Yellow; Glucose Urine UA Negative (Negative); Leukocyte Esterase Urine Negative (Negative); Nitrite Urine Negative (Negative); PH 6.5 (5.0-9.0); Urine Blood Negative (Negative); Urine Ketones Negative (Negative); Urine Protein Negative (Neg-Trace)
[2024-08-13 11:47] LABS: Alanine Aminotransferase 32 U/L (0-40); Albumin Level 4.5 g/dL (3.5-5.0); Alkaline Phosphatase 66 U/L (39-117); Anion Gap 13 (12-20); Aspartate Amino Transferase 33 U/L (5-37); Bilirubin Total 0.3 mg/dL (0.0-1.0); Blood Urea Nitrogen 18 mg/dL (9-16); Calcium 9.5 mg/dL (8.4-10.2); Carbon Dioxide 29 mmol/L (22-29); Chloride 98 mmol/L (96-108); Cholesterol 126 mg/dL (<200); Estimated Glomerular Filt Rate > 60; Glucose Fasting 89 mg/dL (60-99); HDL Cholesterol 29 mg/dL (>40); LDL Cholesterol Calculated 55 mg/dL (<100); Potassium 3.5 mmol/L (3.3-5.1); Sodium 136 mmol/L (135-145); Total Protein 7.1 g/dL (6.5-8.0); Triglycerides 211 mg/dL (<150)
[2024-08-13 12:13] LABS: Creatinine Urine 55.57 mg/dL; Microalbumin Urine < 5.0 mg/L
== END 2024-08-13 08:01 | disposition home or self-care (01) ==
LOC: HO.WFDLDS 08:00
PROVIDERS: Visit Provider Family Medicine
DX: Z00.00 Encounter for general adult medical examination without abnormal findings (principal); E78.5 Hyperlipidemia, unspecified; I10 Essential (primary) hypertension
CPT/HCPCS: 36415; 80053; 80061; 81003; 82043; 82570

== ENCOUNTER 2024-08-16 15:50 | Outpatient (AMB) | payer BC, SELFPAY ==
--- NOTE | 2024-08-16 16:00 | A.OFFPC_ITS ---
Vital Signs 08/16/24 16:05 Height 5 ft 8 in Weight 191 lb BMI 29.0 BP 112/68 Blood Pressure Location Rt brachial Position Sitting Respiration 14 Pulse 106 H Pulse Source Pulse Oximeter Temp 98.2 F Temp Source Oral Pulse Oximetry (%) 98 Oxygen Delivery Method Room Air Intake Visit Reasons: CPE with f/u labs and health maint. 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 Allergies No Known Allergies Allergy (Verified 08/16/24 16:00) Medication List - Last Reconciled 08/16/24 by Emeka Li MD buspirone 5 mg PO DAILY 30 days chlorthalidone 50 mg PO DAILY cholecalciferol (vitamin D3) 50 mcg PO DAILY citalopram (Celexa) 20 mg PO DAILY 90 days clonazepam 0.5 mg PO DAILY 30 days cyclobenzaprine 10 mg PO TID diclofenac sodium 75 mg PO BID fenofibrate 54 mg PO DAILY 90 days ibuprofen 800 mg PO TID 30 days lisinopril 20 mg PO DAILY montelukast 10 mg PO DAILY pyridoxine (vitamin B6) 50 mg PO DAILY rosuvastatin 20 mg PO DAILY 90 days Tobacco use date assessed: 08/04/23 Dental Screening Dental Screen Date: 08/16/24 Did you have a dental visit in the last 12 months?: Yes Did you have a dental problem in the last 6 months where you did not have access to dental care?: No Was dental information given to patient?: Patient has dentist HPI CPE with f/u labs and health maint. 30 mins HPI Details 54 y.o male presents for a CPE with f/u labs and health maint. Labs drawn 08/13/24. Reviewed labs with pt. Triglycerides 211. TC 126. LDL improved from 133 to 55. HDL low at 29. He is on rosuvastatin 20mg daily. Blood pressure today is 112/68, 106p. He is on lisinopril 20mg daily, chlorthalidone 50mg. Pt reports he continues smoking. Has complaints of R jaw swelling. 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 1. Little interest or pleasure in doing things: not at all 2. Feeling down, depressed, or hopeless: not at all 3. Trouble falling or staying asleep, or sleeping too much: several days 4. Feeling tired or having little energy: several days 5. Poor appetite or overeating: not at all 6. Feeling bad about yourself - or that you are a failure or have let yourself or your family down: not at all 7. Trouble concentrating on things, such as reading the newspaper or watching television: not at all 8. Moving or speaking so slowly that other people could have noticed. Or the opposite - being so fidgety or restless that you have been moving around a lot more than usual: not at all 9. Thoughts that you would be better off or of hurting yourself in some way: not at all Total score: 2 Depression Screening Interpretation: Negative Depression Screening Done: Yes 42938 - PHQ-9 Billing: Yes Source: Developed by Drs. Zheng Burt, Larissa Moon, Luis Honeycutt and colleagues, with an educational shawn from [employer]. Thrive Questionnaire Date Thrive assessed: 08/16/24 I am a: Patient What is your living situation today?: I have a steady place to live Within the past 12 months, did the food you bought not last and you didn't have the money to get more?: Never true Within the past 12 months, did you worry whether your food would run out before you got money to buy more?: Never true Do you have trouble paying for medicines?: No Do you have trouble getting transportation to medical appointments?: No Do you have trouble paying your heating and electricity bill?: No Do you have trouble taking care of your child, family member or friend?: No Do you have trouble with day-to-day activities such as bathing, preparing meals, shopping, managing finances, etc.?: No Are you currently unemployed and looking for a job?: No Are you interested in more education?: Yes Please select the resources that you would like help with: None Currently or been in a relationship where the following occur: No concerns reported THRIVE Score: 0 AUDIT C Alcohol Use Questionnaire (AUDIT-C) 1. How often do you have a drink containing alcohol?: 2-3 times a week 2. How many drinks containing alcohol do you have on a typical day when you are drinking?: 3 or 4 3. How often do you have six or more drinks on one occasion?: Less than monthly Total Score: 5 Score Reviewed/Action Taken: Yes SETH-7 AMB Questionnaire SETH-7 Date SETH - 7 assessed: 08/16/24 Feeling nervous, anxious, or on edge: 0 = Not at all Not being able to stop or control worryin = Several days Worrying too much about different things: 1 = Several days Trouble relaxin = Several days Being so restless that it is hard to sit still: 0 = Not at all Becoming easily annoyed or irritable: 0 = Not at all Feeling afraid as if something awful might happen: 0 = Not at all Total SETH-7 score (0-4 normal; 5-9 mild; 10-14 moderate; 15-21 severe): 3 Source: Developed by Drs. Zheng Burt, Larissa Moon, Luis Honeycutt and colleagues, with an educational shawn from [employer]. SETH-7 Assessment Billing SETH-7 Assessment Tool: SETH-7 Assessment 22491 Review of Systems Const Denies chills, Denies fatigue, Denies fever(s), Denies headache(s) and Denies weakness Eyes Denies change in vision ENT Denies dizziness, Denies headache(s), Denies hearing loss, Denies nasal congestion, Denies sinus pain, Denies sinus pressure and Denies sore throat Card Denies chest pain, Denies lightheadedness, Denies dyspnea and Denies other (palpitations) Resp Denies cough, Denies dyspnea and Denies wheezing GI Denies abdominal pain, Denies melena, Denies hematochezia, Denies change in bowel habits, Denies dyspepsia and Denies nausea Denies hematuria and Denies dysuria Musc Denies abnormal gait, Denies myalgias, Denies arthralgias, Denies numbness and Denies tingling Skin/Breast Denies rash, Denies unusual bruising and Denies wounds Neuro Denies abnormal gait, Denies dizziness, Denies headache(s), Denies memory loss, Denies numbness, Denies Sensory deficit (Neuro), Denies tingling and Denies weakness Psych Denies anxiety, Denies depression and Denies memory loss Endo Denies cold intolerance, Denies fatigue, Denies heat intolerance, Denies polydipsia and Denies polyuria Shashi/Lymph Denies easy bleeding and Denies easy bruising Aller/Immun Denies wheezing Physical exam (Primary Care) Vital Signs: Last Vital Signs Temp 98.2 F 08/16/24 16:05 Pulse 106 H 08/16/24 16:05 Resp 14 08/16/24 16:05 BP 112/68 08/16/24 16:05 Pulse Ox 98 08/16/24 16:05 Oxygen Delivery Method Room Air 08/16/24 16:05 BMI result Body Mass Index 29.0 Tobacco/Smoking Status: Tobacco use Status Tobacco use date assessed 08/04/23 08/16/24 16:11 Patient Tobacco Use Status Current everyday Tobacco 08/16/24 16:11 e-Cigarette/Vaping Use Never Used 08/16/24 16:11 PHQ-9: PHQ-9 Score PHQ-9: Total score 2 08/16/24 16:20 Depression Screening Interpretation: Negative Thrive Assessment: Date of Thrive Assessment Date Thrive assessed 08/16/24 08/16/24 16:11 Currently or been in a relationship where the following occur: No concerns reported Const General: no acute distress, well developed, alert and awake Nutritional Appearance: well nourished Orientation/consciousness: patient oriented x3 HENMT Head: Yes normocephalic and Yes atraumatic Ears: hearing grossly normal bilaterally and TM's normal bilaterally General nose exam: Normal external nose present and Normal nares present Mouth: Normal oral and palatal mucosa present and moist mucous membranes Teeth and gingiva: dentition normal Throat: Yes posterior oropharynx normal Eyes General: appearance normal, both eyes and all related structures Pupils: Equal, round and reactive pupils present and Pupil accommodation reflex normal EOM: EOMs intact bilaterally Neck Neck: Yes normal visual inspection, Yes no lymphadenopathy and Yes trachea midline Thyroid: Thyroid normal Carotids: no bruits Lymphatic: no lymphadenopathy noted Chest Chest palpation & inspection: normal inspection of the chest Resp Effort & Inspection: normal respiratory effort Auscultation: clear to auscultation bilaterally Cardio Rate: regular rate and tachycardic Rhythm: regular rhythm Heart sounds: S1 normal heart sound present, S2 normal heart sound present, no gallops, no murmurs and no rubs Bruits: no abdominal aortic bruits and no carotid bruits GI Palpation (GI): No Abdominal aortic bruit present, Soft to palpation, nontender, No hepatosplenomegaly present and No Rebound tenderness present Auscultation: normal bowel sounds General: Yes no CVA tenderness Back/Spine/Pelvis Back: no CVA tenderness Cervical Spine: cervical ROM normal and No Cervical spine tenderness Thoracic/Lumbar Spine: thoraco-lumbar ROM normal, No pain with thoraco-lumbar ROM, No thoracic spinal tenderness and No lumbar spinal tenderness Skin Lesions: no lesions Rashes: no rashes Trauma: no lacerations or abrasions Wounds: no wounds Nails: normal Neuro General: patient oriented x3 Cranial nerves: Yes Equal, round and reactive pupils present Cognition (Neuro): normal cognition Gait exam (Neuro): Normal gait present Motor exam (neuro): 5/5 motor strength present throughout Sensory Exam: No Sensory deficit (Neuro) Deep tendon reflexes (DTR's): Right patellar reflex intensity grade: 2+ and Left patellar reflex intensity grade: 2+ Extrem General: Yes normal to inspection and No edema Psych Appearance: grossly normal Affect: normal affect Attitude: cooperative Thought process: Normal thought process present Coding Level of Care Code Est Pt Prev Care 40-64y(91424) Diagnoses Adult general medical exam Z00.00 Hyperlipidemia E78.5 Anxiety F41.9 Smoker F17.200 Cervical radiculopathy M54.12 Low HDL (under 40) E78.6 Hypertension I10 Screening for prostate cancer Z12.5 Screening for colon cancer Z12.11 Jaw swelling R22.0 Additional Codes SETH-7 Assessment Billing - SETH-7 Assessment Tool: SETH-7 Assessment 69264 ([id number]) PHQ-9 - 62248 - PHQ-9 Billing: Yes ([id number]) Assessment & Plan Assessment & Plan (1) Adult general medical exam: Code(s): Z00.00 - Encounter for general adult medical examination without abnormal findings Category: Medical Plan: 54-year-old?male?presents?for?complete?physical?exam Encouraged?healthy?diet?with?active?lifestyle?and?plenty?of?exercise (2) Hyperlipidemia: Code(s): E78.5 - Hyperlipidemia, unspecified Category: Medical Plan: Patient?is?taking?rosuvastatin?and?fenofibrate LDL?cholesterol?is?well?controlled. Triglycerides?are?fairly?well?controlled HDL?is?too?low Work?at?diet?higher?in?[place]?3?fatty?acids. eg flaxseed?oil?capsule (3) Anxiety: Code(s): F41.9 - Anxiety disorder, unspecified Category: Medical Plan: Continue?prescribed?medications?and?I?will?refer?him?to?a?therapist (4) Smoker: Code(s): F17.200 - Nicotine dependence, unspecified, uncomplicated Category: Social Hx Plan: Patient?is?a?candidate?for?low-dose?CT?scan. Referred He?will?check?with?his?insurance?to?make?sure?he?can?afford?this (5) Cervical radiculopathy: Code(s): M54.12 - Radiculopathy, cervical region Category: Medical Plan: Patient?says?he?tolerates?pain?and?uses?muscle?relaxant He?will?let?me?know?if?this?worsens (6) Low HDL (under 40): Code(s): E78.6 - Lipoprotein deficiency Category: Medical Plan: As?above (7) Hypertension: Code(s): I10 - Essential (primary) hypertension Category: Medical Plan: Blood?pressure?is?well?controlled.??Goal?is?less?than 140/90 Heart?rate?mildly?elevated.??He?is?wondering?if?he?can?decrease?his?medication He?will?try?taking?chlorthalido ne?25?mg?daily?and?increase?back?50?if?blood?pressures?are?too?high. He?is?able?to?check?his?blood?pressures?at?home (8) Screening for prostate cancer: Code(s): Z12.5 - Encounter for screening for malignant neoplasm of prostate Category: Medical Plan: PSA?was?checked?in?March?and?is?within?normal?range Will?continue?annual?screening (9) Screening for colon cancer: Code(s): Z12.11 - Encounter for screening for malignant neoplasm of colon Category: Medical Plan: Patient?says?he?had?a?colonoscopy?a?few?years?ago?and?was?told?to?follow- up?in?5?years. He?thinks?this?was?at?[facility] Will?request?report (10) Jaw swelling: Code(s): R22.0 - Localized swelling, mass and lump, head Category: Medical Plan: Right?jaw?swelling?seems?to?be?associated?with?gum?irritation?or?small?abscess. Probable?reactive?lymph?node?at?jaw?line?on?the?right Follow-up?with?dentist?regarding?gums Use?warm?saltwater?gargles?and?mouthwash.??Use?soft?bristle?brush? on?gums?and?floss. If?not?improved,?will?get?imaging for?likely?reactive?lymph?node?verses?abnormal?lymph?node/neoplasm Orders: Referrals Lung Cancer Screening Referral F17.200 - Nicotine dependence, unspecified, uncomplicated Nurse Navigator Referral F41.9 - Anxiety disorder, unspecified Medications: Changed From chlorthalidone 50 mg PO DAILY To chlorthalidone 50 mg (2 x 25 mg) PO DAILY 90 days 180 tabs 2RF
[2024-08-16 16:05] VITALS: BP 112/68; PULSE 106; RESP 14; TEMP 36.8; O2SAT 98; BMI 29.0
== END 2024-08-16 16:49 | disposition home or self-care (01) ==
LOC: HO.HMCFM 15:51
PROVIDERS: PCP Family Medicine; Visit Provider Family Medicine
DX: Z00.00 Encounter for general adult medical examination without abnormal findings (principal); E78.5 Hyperlipidemia, unspecified; F41.9 Anxiety disorder, unspecified; F17.200 Nicotine dependence, unspecified, uncomplicated; M54.12 Radiculopathy, cervical region; E78.6 Lipoprotein deficiency; I10 Essential (primary) hypertension; Z12.5 Encounter for screening for malignant neoplasm of prostate; Z12.11 Encounter for screening for malignant neoplasm of colon; R22.0 Localized swelling, mass and lump, head

== ENCOUNTER → 2024-08-16 15:50 | Outpatient (BNVA) | payer BC, SELFPAY | PROVIDERS: PCP Family Medicine; Visit Provider Family Medicine | DX: Z00.00 Encounter for general adult medical examination without abnormal findings (principal); E78.5 Hyperlipidemia, unspecified; F41.9 Anxiety disorder, unspecified; M54.12 Radiculopathy, cervical region; E78.6 Lipoprotein deficiency; I10 Essential (primary) hypertension; R22.0 Localized swelling, mass and lump, head; F17.210 Nicotine dependence, cigarettes, uncomplicated | CPT/HCPCS: 96127 ==

== ENCOUNTER 2024-09-18 15:55 | Outpatient (AMB) | payer BC, SELFPAY ==
--- NOTE | 2024-10-05 15:26 | A.OFFPSYCH_ITS ---
Intake Intake Visit Reasons: consultation Tribunal Member Required: No Allergies No Known Allergies Allergy (Verified 08/16/24 16:00) Medication List - Last Reconciled 10/05/24 by Cindy Mueller APRN buspirone 5 mg PO TID chlorthalidone 50 mg (2 x 25 mg) PO DAILY 90 days cholecalciferol (vitamin D3) 50 mcg PO DAILY citalopram (Celexa) 20 mg PO DAILY 90 days clonazepam (Klonopin) 0.5 mg PO DAILY cyclobenzaprine 10 mg PO TID PRN 10 days diclofenac sodium 75 mg PO BID fenofibrate 54 mg PO DAILY 90 days ibuprofen 800 mg PO TID 30 days lisinopril 20 mg PO DAILY montelukast 10 mg PO DAILY pyridoxine (vitamin B6) 50 mg PO DAILY rosuvastatin 20 mg PO DAILY 90 days HPI- Psychiatric Chief Complaint: consultation HPI Narrative: 10/02/24 Met with Edgar and his . He reports he is tolerating Klonopin and Buspirone increase. Pt's concurs. He is tolerating the regime with a decrease in sx. He and report he is not using alcohol. Discussed continued abstinence when on these medications. He reports symptoms are managed, although work stress remains and will not change. Discussion of therapy trial to learn management strategies. Past Psychiatric History: In Pt- no history Out Pt-no history Medications-Klonopin with former PCP No hx of suicidality, anisha or psychosis Subjective Subjective Subjective Medication Compliance: Yes Side effects from medications: No Review of Systems Medical Review of Systems: unchanged Review of Systems Review of Systems Denies Mental Status Exam Mental Status Exam Patient Appearance: Appropriate Patient Orientation: Person, Place, Time and Situation Level of Consciousness: Alert Patient Behavior: Talkative Mood Description: Constricted Affect Description: Constricted Patient Cognition Impaired: No Ability to Follow Directions: Good Speech Pattern: Spontaneous Speech Memory Description: Intact Hallucinations: None Delusions: Not Present Thought Process: Intact Thought Content: positive for Intact Depressive Symptoms: Increased Anxiety Judgement: Good Assessment and Plan Assessment & Plan (1) Anxiety: Status: Acute Code(s): F41.9 - Anxiety disorder, unspecified Plan Edgar reports that increase of buspirone and addition of klonopin as he has had in the past is tolerated and helpful to manage sx at this time. Medications: New buspirone 5 mg PO TID 90 tabs 0RF Changed From clonazepam [employer] Verified 0.5 mg PO DAILY 30 days 30 tabs 0RF To clonazepam [employer] Verified 0.5 mg PO DAILY 15 tabs 0RF 15 days Counseling and coordination of Care Medication management counseling: Effectiveness, Side effects, Dosing range, Duration, Drug interaction and Adherence Details-Med Mgmt counseling: Aware not to mix with alcohol. Pt and report since initiating the medication he has stopped alcohol use. Details: I spent [] minutes reviewing the record, seeing the patient and documenting in the medical record. Counseling provided to the patient/caregiver as outlined below. Addressed patient/caregiver concerns regarding current medication regime including effective adherence. Addressed patient/caregiver concerns regarding diagnosis and prognosis including accuracy of diagnosis, prognosis over time, impact of diagnosis. Addressed patient/caregiver concerns regarding impact of recent stressors. 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 Raised by mom, then dad. Four step sisters and one step brother. 29 years, together for 36 years, no children. 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 Well known and respected in his field-has left high paying job in [place] to restructure a company and put it back on track. Has high integrity and conscience for good business presentation which itself produces stress for him Substance History: Alcohol 3-4 x week 2-3 servings-took the place of [employer] Cannabis a few puffs a week Substances help him relax and manage anxiety Trauma History: affirms Coding Level of Care Code Est Pt Level 3 (09362) Diagnoses Anxiety F41.9
== END 2024-09-18 16:46 | disposition home or self-care (01) ==
LOC: HO.HOP 15:55
PROVIDERS: PCP Family Medicine; Visit Provider Clinical Nurse Specialist Psychiatric/Mental Health, Adult
DX: F41.9 Anxiety disorder, unspecified (principal)
CPT/HCPCS: 99213

== ENCOUNTER 2024-10-02 16:36 | Outpatient (AMB) | payer BC, SELFPAY ==
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
== END 2024-10-02 17:07 | disposition home or self-care (01) ==
LOC: HO.HOP 16:36
PROVIDERS: PCP Family Medicine; Visit Provider Clinical Nurse Specialist Psychiatric/Mental Health, Adult
DX: F41.9 Anxiety disorder, unspecified (principal)
CPT/HCPCS: 99204

== ENCOUNTER 2024-11-08 15:59 | Outpatient (AMB) | payer BC, SELFPAY ==
--- NOTE | 2024-11-08 16:04 | MHC.PC.OV ---
Vital Signs 11/08/24 16:09 Height 5 ft 8 in Weight 176 lb 4 oz BMI 26.8 BP 116/70 Blood Pressure Location Rt brachial Position Sitting Respiration 14 Pulse 97 Pulse Source Pulse Oximeter Temp 98.3 F Temp Source Temporal Artery Scan Pulse Oximetry (%) 97 Oxygen Delivery Method Room Air Intake Visit Reasons: f/u HTN Intake Note: Edgar presents in the office for a follow up to hypertension. Allergies Seasonal Allergies Allergy (Verified 11/08/24 16:07) Runny Nose Tobacco use date assessed: 11/08/24 Dental Screening Dental Screen Date: 11/08/24 Did you have a dental visit in the last 12 months?: Yes Did you have a dental problem in the last 6 months where you did not have access to dental care?: No Was dental information given to patient?: Patient has dentist HPI f/u HTN HPI Details 54 y/o male presents to f/u hypertension, smoking cessation. Blood pressure today 116/70, 97p. He is on lisinopril 20mg daily. No recent labs to review for his lipids. Ongoing smoking. Had a low dose CT scan scheduled for December. Complaints of carpal tunnel syndrome. Positive phalen's test. HPI Comments History of Present Illness Details Documentation assistance for Emeka Li MD, was provided by Travis Everett, Organizational Research Consultant on 11/08/2024 at 4:32 PM EST. I, Dr. Li, have read, observed, and verified documentation. [facility] Medical History (Updated 11/08/24 @ 16:51 by Travis Everett) History of colon polyps Hyperlipidemia Nicotine dependence, cigarettes, uncomplicated Cyst near tailbone Hypertension Surgical History (Updated 10/21/24 @ 10:09 by Vangie Arizmendi PA-C) History of colonoscopy History of lumbar surgery History of cervical spinal surgery Family History Father Colon cancer Mother Breast cancer Maternal Uncle Cancer Paternal Uncle Cancer Social History (Updated 11/08/24 @ 16:09 by Nora Lock MA) Housing: House Alcohol intake: current Patient Tobacco Use Status: Current everyday Tobacco user Cigarette Packs Per Day: 1 e-Cigarette/Vaping Use: Never Used Second Hand Smoke Exposure: Yes service: No 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 Cognitive needs: No Hearing needs: No Vision needs: Yes (wears glasses) Questionnaire Thrive Questionnaire Date Thrive assessed: 04/02/24 I am a: Patient What is your living situation today?: I have a steady place to live Within the past 12 months, did the food you bought not last and you didn't have the money to get more?: Never true Within the past 12 months, did you worry whether your food would run out before you got money to buy more?: Never true Do you have trouble paying for medicines?: No Do you have trouble getting transportation to medical appointments?: No Do you have trouble paying your heating and electricity bill?: No Do you have trouble taking care of your child, family member or friend?: No Do you have trouble with day-to-day activities such as bathing, preparing meals, shopping, managing finances, etc.?: No Are you currently unemployed and looking for a job?: No Are you interested in more education?: Yes Please select the resources that you would like help with: None Currently or been in a relationship where the following occur: No concerns reported THRIVE Score: 0 SETH-7 AMB Questionnaire SETH-7 Date SETH - 7 assessed: 08/16/24 Source: Developed by Drs. Zheng Burt, Larissa Moon, Luis Honeycutt and colleagues, with an educational shawn from [employer]. Review of Systems Const Denies chills, Denies fatigue, Denies fever(s), Denies headache(s) and Denies weakness ENT Denies dizziness and Denies headache(s) Card Denies dyspnea Resp Denies cough, Denies dyspnea, Denies wheezing and Denies other (shortness of breath) Musc Denies numbness and Denies tingling Neuro Denies dizziness, Denies headache(s), Denies numbness, Denies tingling and Denies weakness Psych Denies anxiety and Denies depression Endo Denies fatigue Aller/Immun Denies wheezing Physical exam (Primary Care) Vital Signs: Last Vital Signs Temp 98.3 F 11/08/24 16:09 Pulse 97 11/08/24 16:09 Resp 14 11/08/24 16:09 BP 116/70 11/08/24 16:09 Pulse Ox 97 11/08/24 16:09 Oxygen Delivery Method Room Air 11/08/24 16:09 BMI result Body Mass Index 26.8 Tobacco/Smoking Status: Tobacco use Status Tobacco use date assessed 11/08/24 11/08/24 16:12 Patient Tobacco Use Status Current everyday Tobacco 11/08/24 16:09 e-Cigarette/Vaping Use Never Used 11/08/24 16:09 Thrive Assessment: Date of Thrive Assessment Date Thrive assessed 04/02/24 11/08/24 16:05 Currently or been in a relationship where the following occur: No concerns reported Const General: well developed; No acute distress Nutritional Appearance: well nourished Orientation/consciousness: patient oriented x3 HENMT Head: Yes normocephalic and Yes atraumatic Eyes General: appearance normal, both eyes and all related structures Pupils: Equal, round and reactive pupils present EOM: EOMs intact bilaterally Resp Effort & Inspection: normal respiratory effort Neuro General: patient oriented x3 and gait normal Cranial nerves: Yes Equal, round and reactive pupils present Psych Affect: normal affect Coding Level of Care Code Est Pt Level 4 (63648) Diagnoses Hypertension I10 Nicotine dependence, cigarettes, uncomplicated F17.210 Hyperlipidemia E78.5 Cervical radiculopathy M54.12 Carpal tunnel syndrome G56.00 Hand tendonitis M77.8 Neoplasm of uncertain behavior of skin D48.5 Assessment & Plan Assessment & Plan (1) Hypertension: Code(s): I10 - Essential (primary) hypertension Category: Medical Plan: Blood pressure 116/70 today. This is a normal blood pressure. Patient says he is not taking his medication for least 2 days and possibly a week. He has lost about 15 lb since last measurement. He also notes that he has decreased alcohol intake a little though he says he did not drink to excess before. Encouraged him to check his blood pressures regularly at home. If blood pressure is increasing again he can resume the medication. Will follow-up at next visit (2) Nicotine dependence, cigarettes, uncomplicated: Code(s): F17.210 - Nicotine dependence, cigarettes, uncomplicated Category: Medical Plan: Patient has switched from smoking cigarettes to vaping Encouraged him to wean down is vaping use He has an appointment for LDCT in December (3) Hyperlipidemia: Code(s): E78.5 - Hyperlipidemia, unspecified Category: Medical Plan: Patient has stopped taking atorvastatin Will be rechecking lipids with next blood draw and follow-up at his next appointment Encouraged a diet lower in saturated fats and cholesterol (4) Cervical radiculopathy: Code(s): M54.12 - Radiculopathy, cervical region Category: Medical Plan: MRI shows central canal stenosis without cord compression Also shows foraminal stenoses Will refer him to pain management to consider injection therapy or other pain management modalities. (5) Carpal tunnel syndrome: Code(s): G56.00 - Carpal tunnel syndrome, unspecified upper limb Category: Medical Plan: Phalen test positive bilaterally He is using Braulio wraps on bilateral wrists during work and loosely at bedtime Will refer him to the hand surgeon (6) Hand tendonitis: Code(s): M77.8 - Other enthesopathies, not elsewhere classified Category: Medical Plan: Stiffness and pain in his right palm Likely tendinitis and he will see the hand surgeon as above (7) Neoplasm of uncertain behavior of skin: Code(s): D48.5 - Neoplasm of uncertain behavior of skin Category: Medical Plan: 1 cm lump add in her lateral right chest which patient notes is getting larger. Referred to edema was dermatology Orders: Orders Comprehensive [place]. Panel Fast Today Z00.00 - Encounter for general adult medical examination without abnormal findings Lipid Panel Today Z00.00 - Encounter for general adult medical examination without abnormal findings Microalbumin, Random (w Creat) Today I10 - Essential (primary) hypertension Complete Blood Count Auto Diff Today Z00.00 - Encounter for general adult medical examination without abnormal findings Vitamin D 25-OH Total Today E55.9 - Vitamin D deficiency, unspecified Vitamin B12 and Folate Today E53.8 - Deficiency of other specified B group vitamins Referrals Dermatology Referral D48.5 - Neoplasm of uncertain behavior of skin Pain Management Referral M54.12 - Radiculopathy, cervical region Hand Surgery Referral G56.00 - Carpal tunnel syndrome, unspecified upper limb, M77.8 - Other enthesopathies, not elsewhere classified
[2024-11-08 16:09] VITALS: BP 116/70; PULSE 97; RESP 14; TEMP 36.8; O2SAT 97; BMI 26.8
== END 2024-11-08 16:51 | disposition home or self-care (01) ==
LOC: HO.HMCFM 15:59
PROVIDERS: PCP Family Medicine; Visit Provider Family Medicine
DX: I10 Essential (primary) hypertension (principal); F17.210 Nicotine dependence, cigarettes, uncomplicated; E78.5 Hyperlipidemia, unspecified; M54.12 Radiculopathy, cervical region; G56.03 Carpal tunnel syndrome, bilateral upper limbs; D48.5 Neoplasm of uncertain behavior of skin

== ENCOUNTER 2024-12-04 16:09 | Outpatient (AMB) | payer BC, SELFPAY ==
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
== END 2024-12-04 16:40 | disposition home or self-care (01) ==
LOC: HO.HOP 16:09
PROVIDERS: PCP Family Medicine; Visit Provider Clinical Nurse Specialist Psychiatric/Mental Health, Adult
DX: F41.9 Anxiety disorder, unspecified (principal)
CPT/HCPCS: 99213

== ENCOUNTER 2024-12-13 09:59 | Outpatient (AMB) | payer BC, SELFPAY ==
--- NOTE | 2024-12-13 07:52 | MHC.OFFVIS ---
Intake Visit Reasons: Current Smoker Allergies Seasonal Allergies Allergy (Verified 11/08/24 16:07) Runny Nose HPI HPI Current Smoker: Details: Initial visit for this 54yo smoker with a 50+PYH. Patient started smoking at age 14 for 40 years. Max 2ppd for 20. Now 3/4-1ppd. . Notes marijuana use 2 x a month. Denies second hand smoke exposure. Denies exposure to chemicals or substances like asbestos. . Family history of lung cancer - Paternal grandmother and 2 uncles. Denies personal history of cancers. . Denies chest CT in last year. Prior scans at another hosptial in past and he reports he was told he has mold spores in his lungs . Denies recent travel outside the [place]. Denies recent respiratory illness or recent hospitalization for respiratory issues. Denies testing positive for COVID. Admits receiving COVID Vaccine. . Denies fever, chills, new/worsening cough, hemoptysis, hoarseness or dysphagia. Denies significant chest pain, significant dyspnea or unintentional weight loss. Patient Lung Cancer Screening Questionnaire reviewed with patient by provider. . Shared Decision Making Completed. Patient meets criteria. Discussed in detail with patient, the risk vs benefit of LDCT screening. Patient consents to proceed with scan. Discussed smoking cessation. [facility] Medical History (Updated 12/13/24 @ 10:14 by Vangie Arizmendi PA-C) Hypertension Hyperlipidemia Sleep apnea Nicotine dependence, cigarettes, uncomplicated History of colon polyps Cyst near tailbone Surgical History (Updated 12/13/24 @ 10:11 by Vangie Arizmendi PA-C) History of colonoscopy History of lumbar surgery History of cervical spinal surgery Family History (Updated 12/13/24 @ 10:11 by Vangie Arizmendi PA-C) Father Colon cancer Mother Breast cancer Maternal Uncle Cancer Paternal Uncle Lung cancer Paternal Uncle Lung cancer Paternal Grandmother Lung cancer Social History (Updated 12/13/24 @ 10:14 by Vangie Arizmendi PA-C) Housing: House Alcohol intake: current Patient Tobacco Use Status: Current everyday Tobacco user Years Smoked: (onset 14yo, x 40yrs, 2ppd x 20yrs, now 3/4-1ppd, 50+PYH) e-Cigarette/Vaping Use: Never Used Second Hand Smoke Exposure: Yes service: No 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 - Patient meets criteria for LDCT for lung cancer screening purposes and is asymptomatic. - Smoking cessation counseling offered. Patients can always call [phone]. - Will arrange for a LDCT scan of the chest for screening purposes at [facility]. - Risks, benefits, and alternatives were discussed in detail and the patient agrees to proceed. - Risks discussed include but are not limited to: radiation exposure, anxiety during testing and while awaiting results, false negatives, false positives and possibility of additional intervention such as further imaging or surgical procedures for benign disease. - Benefits are obviously detection of lung cancer at an early stage which can lead to improved outcomes. - Discussed the importance of screening program compliance with adherence to yearly LDCT scan as scheduled - or sooner interval scans for personalized screening regimen. - Discussed follow up plan. Our office will send a letter discussing results and if needed set up phone call and office visit based on CT findings. - Patient educated on results categorization and the management decisions for suspicious findings potentially found on the screening LDCT scan. Any patient with a Lung RADS score of 3 or 4 will be reviewed by a multidisciplinary team at [facility] to form a plan of action in regards to scan findings. - If further work up is warranted for a suspicious lung finding this will be followed by the Lung Cancer Screening program in conjunction with the Thoracic Surgery Department at [facility]. - A copy of the office note and LDCT will be sent to the patient's PCP - as well as documentation on any associated further plans of care. - Incidental findings on LDCT are the PCP's responsibility. These findings are indicated with an S finding on the LDCT Assessment. A note discussing the findings will be sent to the PCP who is then responsible for further management. - All questions answered.? Coding Level of Care Code Lung Cancer Screening G0296 Diagnoses Nicotine dependence, cigarettes, uncomplicated F17.210
== END 2024-12-13 15:55 | disposition home or self-care (01) ==
PROVIDERS: PCP Family Medicine; Referring Provider Family Medicine; Visit Provider Physician Assistant Medical
DX: F17.210 Nicotine dependence, cigarettes, uncomplicated (principal)
CPT/HCPCS: G0296

== ENCOUNTER 2024-12-13 10:12 | Outpatient (REF) | payer BC, SELFPAY ==
--- NOTE | ~2024-12-13 | CT_ITS ---
CLINICAL HISTORY: F17.210 - Nicotine dependence, cigarettes, uncomplicated CT lung cancer screening (LDCT) Comparison: None provided Technique: Axial CT images of the chest using low-dose technique. Referring provider counseled the patient on shared decision-making for LDCT screening. Additional counseling was provided on smoking cessation. Effective radiation dose total: DLP 84.1 mGycm, CTDIvol 2.1 mGy. Findings: Lun.6 cm left lower lobe solid lesion. 0.3 cm right upper lobe pulmonary lesion. Coronary artery calcifications: Mild Limited upper abdomen: Unremarkable Other: None IMPRESSION: Lung rads 3, probably benign. Recommend six-month LD CT This document has been electronically signed by: Zaki Ward MD on 12/15/2024 08:38:46
== END 2024-12-13 10:13 | disposition home or self-care (01) ==
LOC: HO.CT 10:12
PROVIDERS: PCP Family Medicine; Visit Provider Physician Assistant Medical
DX: Z12.2 Encounter for screening for malignant neoplasm of respiratory organs (principal); F17.210 Nicotine dependence, cigarettes, uncomplicated
CPT/HCPCS: 71271

== ENCOUNTER → 2024-12-13 10:14 | Outpatient (BNV) | payer BC, SELFPAY | PROVIDERS: PCP Family Medicine; Visit Provider Specialist | DX: F17.210 Nicotine dependence, cigarettes, uncomplicated (principal) | CPT/HCPCS: 71271 ==

== ENCOUNTER 2025-01-23 10:59 | Outpatient (REF) | payer BC, SELFPAY ==
--- NOTE | 2025-01-23 11:51 | EMG_ITS ---
Chief complaint: Numbness and tingling both hands Referred by:?Dr Robson Bower Procedure done: Bilateral upper extremities NCS/EMG Bilateral median and ulnar motor studies were performed. Bilateral median and ulnar mixed sensory studies were performed 2nd and 5th digit ortho sensory studies were performed and radial sensory studies were performed. Paraspinals were tested with a needle. Findings: Bilateral median motor distal latencies were moderately prolonged with intact amplitudes and conduction velocities. Median mixed distal latencies on the left side was moderately prolonged with significant slowing for conduction velocity, in right median mixed stimulation did not produce any response. Rest of the study did not reveal any significant abnormality. 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
== END 2025-01-23 11:00 | disposition home or self-care (01) ==
LOC: HO.NEURO 10:59
PROVIDERS: PCP Family Medicine
DX: R20.0 Anesthesia of skin (principal); R20.2 Paresthesia of skin
CPT/HCPCS: 95886; 95913

== ENCOUNTER → 2025-01-23 11:51 | Outpatient (BNV) | payer BC, SELFPAY | PROVIDERS: PCP Family Medicine; Visit Provider Psychiatry & Neurology Neurology | DX: G56.03 Carpal tunnel syndrome, bilateral upper limbs (principal) | CPT/HCPCS: 95886; 95913 ==

== ENCOUNTER 2025-02-07 14:41 | Outpatient (AMB) | payer BC, SELFPAY ==
--- NOTE | 2025-02-07 14:57 | MHC.PC.OV ---
Vital Signs 02/07/25 15:01 Height 5 ft 8 in Weight 168 lb 2 oz BMI 25.6 BP 122/80 Blood Pressure Location Rt brachial Position Sitting Pulse 104 H Pulse Source Pulse Oximeter Temp 98.5 F Temp Source Temporal Artery Scan Pulse Oximetry (%) 96 Oxygen Delivery Method Room Air Intake Visit Reasons: Nerve pain arms and wrists Intake Note: Tito presents in the office today for nerve pain in arms and wrists. 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 Allergies Seasonal Allergies Allergy (Verified 02/07/25 14:59) Runny Nose Medication List - Last Reconciled 02/07/25 by Emeka Li MD buspirone 5 mg PO TID clonazepam (Klonopin) 0.5 mg PO DAILY cyclobenzaprine 10 mg PO TID PRN 10 days ibuprofen 800 mg PO TID 30 days Tobacco use date assessed: 02/07/25 Dental Screening Dental Screen Date: 02/07/25 Did you have a dental visit in the last 12 months?: Yes Did you have a dental problem in the last 6 months where you did not have access to dental care?: No Was dental information given to patient?: Patient has dentist HPI Nerve pain arms and wrists HPI Details 54 y/o male presents to f/u nerve pain. Reports worsening pain of his arms/wrist. Hx of carpal tunnel syndrome. Reports severe hand pain bilaterally. PFSH Medical History (Updated 02/07/25 @ 15:47 by Travis vEerett) Pulmonary nodule Hypertension Hyperlipidemia Sleep apnea Nicotine dependence, cigarettes, uncomplicated History of colon polyps Cyst near tailbone Surgical History (Updated 12/13/24 @ 10:11 by Vangie Arizmendi PA-C) History of colonoscopy History of lumbar surgery History of cervical spinal surgery Family History Father Colon cancer Mother Breast cancer Maternal Uncle Cancer Paternal Uncle Lung cancer Paternal Uncle Lung cancer Paternal Grandmother Lung cancer Social History (Updated 02/07/25 @ 15:01 by Nora Lock CMA) Housing: House Alcohol intake: former Patient Tobacco Use Status: Current everyday Tobacco user Years Smoked: (onset 14yo, x 40yrs, 2ppd x 20yrs, now 3/4-1ppd, 50+PYH) e-Cigarette/Vaping Use: Never Used Second Hand Smoke Exposure: Yes service: No 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 Cognitive needs: No Hearing needs: No Vision needs: Yes (wears glasses) Questionnaire Thrive Questionnaire Date Thrive assessed: 04/02/24 I am a: Patient What is your living situation today?: I have a steady place to live Within the past 12 months, did the food you bought not last and you didn't have the money to get more?: Never true Within the past 12 months, did you worry whether your food would run out before you got money to buy more?: Never true Do you have trouble paying for medicines?: No Do you have trouble getting transportation to medical appointments?: No Do you have trouble paying your heating and electricity bill?: No Do you have trouble taking care of your child, family member or friend?: No Do you have trouble with day-to-day activities such as bathing, preparing meals, shopping, managing finances, etc.?: No Are you currently unemployed and looking for a job?: No Are you interested in more education?: Yes Please select the resources that you would like help with: None Currently or been in a relationship where the following occur: No concerns reported THRIVE Score: 0 SETH-7 AMB Questionnaire SETH-7 Date SETH - 7 assessed: 08/16/24 Source: Developed by Drs. Zheng Burt, Larissa Moon, Luis Honeycutt and colleagues, with an educational shawn from [employer]. Review of Systems Const Denies chills, Denies fatigue, Denies fever(s), Denies headache(s) and Denies weakness ENT Denies dizziness and Denies headache(s) Card Denies dyspnea Resp Denies cough, Denies dyspnea, Denies wheezing and Denies other (shortness of breath) Musc Denies numbness and Denies tingling Neuro Denies dizziness, Denies headache(s), Denies numbness, Denies tingling and Denies weakness Psych Denies anxiety and Denies depression Endo Denies fatigue Aller/Immun Denies wheezing Physical exam (Primary Care) Vital Signs: Last Vital Signs Temp 98.5 F 02/07/25 15:01 Pulse 104 H 02/07/25 15:01 BP 122/80 02/07/25 15:01 Pulse Ox 96 02/07/25 15:01 Oxygen Delivery Method Room Air 02/07/25 15:01 BMI result Body Mass Index 25.6 Tobacco/Smoking Status: Tobacco use Status Tobacco use date assessed 02/07/25 02/07/25 15:04 Patient Tobacco Use Status Current everyday Tobacco 02/07/25 15:04 e-Cigarette/Vaping Use Never Used 02/07/25 15:04 Thrive Assessment: Date of Thrive Assessment Date Thrive assessed 04/02/24 02/07/25 15:04 Currently or been in a relationship where the following occur: No concerns reported Const General: well developed; No acute distress Nutritional Appearance: well nourished Orientation/consciousness: patient oriented x3 HENMT Head: Yes normocephalic and Yes atraumatic Eyes General: appearance normal, both eyes and all related structures Pupils: Equal, round and reactive pupils present EOM: EOMs intact bilaterally Resp Effort & Inspection: normal respiratory effort Neuro General: patient oriented x3 and gait normal Cranial nerves: Yes Equal, round and reactive pupils present Psych Affect: normal affect Coding Level of Care Code Est Pt Level 3 (48445) Diagnoses Arm pain M79.603 Carpal tunnel syndrome G56.00 Assessment & Plan Assessment & Plan (1) Arm pain: Code(s): M79.603 - Pain in arm, unspecified Category: Medical (2) Carpal tunnel syndrome: Code(s): G56.00 - Carpal tunnel syndrome, unspecified upper limb Category: Medical Plan EMG shows [id number] 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 Patient has severe hand pain bilaterally and decreased mobility. 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 Will refer him to hand surgery Will give him a steroid taper Can continue ibuprofen 800 mg t.i.d. Ice/heat Lidocaine gel Short course of tramadol for severe pain. Orders: Referrals Hand Surgery Referral G56.00 - Carpal tunnel syndrome, unspecified upper limb Dermatology Referral D48.5 - Neoplasm of uncertain behavior of skin Medications: New tramadol 50 mg PO BID PRN 10 tabs 0RF pain 5 days lidocaine 4% 1 appl topical TID PRN 30 grams 1RF pain 14 days prednisone 4 tabs daily for 4 days, 3 tabs daily for 2 days, 2 tabs daily for 2 days, 1 tab daily for 2 days PO daily; 28 tabs 0RF 10 days Refilled ibuprofen 800 mg PO TID 90 tabs 0RF 30 days
[2025-02-07 15:01] VITALS: BP 122/80; PULSE 104; TEMP 36.9; O2SAT 96; BMI 25.6
== END 2025-02-07 16:02 | disposition home or self-care (01) ==
LOC: HO.HMCFM 14:42
PROVIDERS: PCP Family Medicine; Visit Provider Family Medicine
DX: M79.603 Pain in arm, unspecified (principal); G56.00 Carpal tunnel syndrome, unspecified upper limb

== ENCOUNTER 2025-02-26 10:27 | Outpatient (AMB) | payer BC, SELFPAY ==
--- NOTE | 2025-02-26 10:37 | A.OFFPC_ITS ---
Vital Signs 02/26/25 10:40 Height 5 ft 8 in Weight 168 lb BMI 25.5 BP 132/88 Blood Pressure Location Rt brachial Position Sitting Respiration 15 Pulse 106 H Pulse Source Pulse Oximeter Temp 98.1 F Temp Source Temporal Artery Scan Pulse Oximetry (%) 97 Oxygen Delivery Method Room Air Intake Visit Reasons: f/u arm pain Intake Note: Edgar presents in the office today for bilateral arm pain. Needs refill of lidocaine gel. 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 Allergies Seasonal Allergies Allergy (Verified 02/26/25 10:38) Runny Nose Medication List - Last Reconciled 02/26/25 by Emeka Li MD buspirone 5 mg PO TID clonazepam (Klonopin) 0.5 mg PO DAILY cyclobenzaprine 10 mg PO TID PRN 10 days ibuprofen 800 mg PO TID 30 days lidocaine 4% 1 appl topical TID PRN 14 days prednisone 40 mg (2 x 20 mg) PO DAILY 5 days tramadol 50 mg PO BID PRN 5 days Tobacco use date assessed: 02/26/25 Dental Screening Dental Screen Date: 02/26/25 Did you have a dental visit in the last 12 months?: Yes Did you have a dental problem in the last 6 months where you did not have access to dental care?: No Was dental information given to patient?: Patient has dentist HPI f/u arm pain HPI Details 54 y/o male presents to f/u bilateral toro nd pain. EMG had shown moderate to severe R and moderate L median neuropathy across carpal tunnel. Reports ongoing severe hand pain bilaterally and decreased mobility. Pt notes he has last seen pain management several years ago. He reports he is reluctant to go back. [facility] Medical History (Updated 02/26/25 @ 10:51 by Travis Everett) Pulmonary nodule Hypertension Hyperlipidemia Sleep apnea Nicotine dependence, cigarettes, uncomplicated History of colon polyps Cyst near tailbone Surgical History (Updated 12/13/24 @ 10:11 by Vangie Arizmendi PA-C) History of colonoscopy History of lumbar surgery History of cervical spinal surgery Family History Father Colon cancer Mother Breast cancer Maternal Uncle Cancer Paternal Uncle Lung cancer Paternal Uncle Lung cancer Paternal Grandmother Lung cancer Social History (Updated 02/26/25 @ 10:40 by Nora Lock CMA) Housing: House Alcohol intake: former Patient Tobacco Use Status: Current everyday Tobacco user Years Smoked: (onset 14yo, x 40yrs, 2ppd x 20yrs, now 3/4-1ppd, 50+PYH) e-Cigarette/Vaping Use: Never Used Second Hand Smoke Exposure: Yes service: No 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 Cognitive needs: No Hearing needs: No Vision needs: Yes (wears glasses) Questionnaire Thrive Questionnaire Date Thrive assessed: 04/02/24 I am a: Patient What is your living situation today?: I have a steady place to live Within the past 12 months, did the food you bought not last and you didn't have the money to get more?: Never true Within the past 12 months, did you worry whether your food would run out before you got money to buy more?: Never true Do you have trouble paying for medicines?: No Do you have trouble getting transportation to medical appointments?: No Do you have trouble paying your heating and electricity bill?: No Do you have trouble taking care of your child, family member or friend?: No Do you have trouble with day-to-day activities such as bathing, preparing meals, shopping, managing finances, etc.?: No Are you currently unemployed and looking for a job?: No Are you interested in more education?: Yes Currently or been in a relationship where the following occur: No concerns reported THRIVE Score: 0 SETH-7 AMB Questionnaire STEH-7 Date SETH - 7 assessed: 08/16/24 Source: Developed by Drs. Zheng Burt, Larissa Moon, Luis Honeycutt and colleagues, with an educational shawn from [employer]. Review of Systems Const Denies chills, Denies fatigue, Denies fever(s), Denies headache(s) and Denies weakness ENT Denies dizziness and Denies headache(s) Card Denies dyspnea Resp Denies cough, Denies dyspnea, Denies wheezing and Denies other (shortness of breath) Musc Denies numbness and Denies tingling Neuro Denies dizziness, Denies headache(s), Denies numbness, Denies tingling and Denies weakness Psych Denies anxiety and Denies depression Endo Denies fatigue Aller/Immun Denies wheezing Physical exam (Primary Care) Vital Signs: Last Vital Signs Temp 98.1 F 02/26/25 10:40 Pulse 106 H 02/26/25 10:40 Resp 15 02/26/25 10:40 BP 132/88 02/26/25 10:40 Pulse Ox 97 02/26/25 10:40 Oxygen Delivery Method Room Air 02/26/25 10:40 BMI result Body Mass Index 25.5 Tobacco/Smoking Status: Tobacco use Status Tobacco use date assessed 02/26/25 02/26/25 10:42 Patient Tobacco Use Status Current everyday Tobacco 02/26/25 10:42 e-Cigarette/Vaping Use Never Used 02/26/25 10:42 Thrive Assessment: Date of Thrive Assessment Date Thrive assessed 04/02/24 02/26/25 10:42 Currently or been in a relationship where the following occur: No concerns reported Const General: well developed; No acute distress Nutritional Appearance: well nourished Orientation/consciousness: patient oriented x3 HENMT Head: Yes normocephalic and Yes atraumatic Eyes General: appearance normal, both eyes and all related structures Pupils: Equal, round and reactive pupils present EOM: EOMs intact bilaterally Resp Effort & Inspection: normal respiratory effort Neuro General: patient oriented x3 and gait normal Cranial nerves: Yes Equal, round and reactive pupils present Psych Affect: normal affect Coding Level of Care Code Est Pt Level 4 (66604) Diagnoses Bilateral hand pain M79.641; M79.642 Carpal tunnel syndrome G56.00 Cervical radiculopathy M54.12 Hypertension I10 Hyperlipidemia E78.5 Assessment & Plan Assessment & Plan (1) Bilateral hand pain: Code(s): M79.641 - Pain in right hand; M79.642 - Pain in left hand Category: Medical Plan: EMG showed marked carpal tunnel syndrome bilaterally He has an upcoming appointment for review with the hand specialists at [facility] Still having severe pain in both hands and using ibuprofen at maximum doses. He said prednisone did help and I will give him another short course of this Will give him a small amount of tramadol for breakthrough pain. We discussed that this is not intended to be a long-term medication. Patient understands. Can also try some lidocaine at carpal tunnel and hands (2) Carpal tunnel syndrome: Code(s): G56.00 - Carpal tunnel syndrome, unspecified upper limb Category: Medical Plan: As above (3) Cervical radiculopathy: Code(s): M54.12 - Radiculopathy, cervical region Category: Medical Plan: Had made a referral to pain management in November for patient for cervical radiculopathy neck and shoulder pain. Patient was under the impression that this specialty only prescribed long-term opioid medications - says he is not interested in long-term opioid medication and declined the referral appointment. Did not seem to realize that they offer many different and integrated modalities for pain control. Patient would like to be scheduled to discuss options other than medication for improvement of cervical radiculopathy, neck and shoulder pain. Asking the office to help him get scheduled (4) Hypertension: Code(s): I10 - Essential (primary) hypertension Category: Medical Plan: Blood pressure is fairly well controlled off of medication. Continue diet low in salt and sodium Will monitor (5) Hyperlipidemia: Code(s): E78.5 - Hyperlipidemia, unspecified Category: Medical Plan: Patient has stopped rosuvastatin Has not had his lipids rechecked yet. He will get his labs drawn. We can follow-up in couple months Medications: New prednisone 40 mg (2 x 20 mg) PO DAILY 10 tabs 0RF 5 days Refilled tramadol 50 mg PO BID PRN 10 tabs 0RF pain 5 days lidocaine 4% 1 appl topical TID PRN 30 grams 1RF pain 14 days
[2025-02-26 10:40] VITALS: BP 132/88; PULSE 106; RESP 15; TEMP 36.7; O2SAT 97; BMI 25.5
== END 2025-02-26 11:07 | disposition home or self-care (01) ==
LOC: HO.HMCFM 10:28
PROVIDERS: PCP Family Medicine; Visit Provider Family Medicine
DX: M79.641 Pain in right hand (principal); M79.642 Pain in left hand; G56.00 Carpal tunnel syndrome, unspecified upper limb; M54.12 Radiculopathy, cervical region; I10 Essential (primary) hypertension; E78.5 Hyperlipidemia, unspecified